=== PATIENT | male | born 1945 | race Caucasian/White ===

== ENCOUNTER 2017-11-05 09:04 | Observation (INO) | payer MEDICARE ==
[2017-11-05] MEDS ORDERED: SODIUM CHLORIDE 0.9% 1,000 ML IV STA (09:34)
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
[2017-11-05 09:47] LABS: Glucose,Whole Blood 158 mg/dL (75-99)
[2017-11-05 09:58] LABS: Basophils % (A) 1 %; Eosinophils # (A) 0.2 k/uL (0-0.7); Eosinophils % (A) 3 %; HCT 43.5 % (39.0-53.0); HGB 14.3 gm/dL (13.0-17.5); Lymphocytes % (A) 26 %; MCH 28.6 pg (25.0-35.0); MCHC 32.8 g/dL (31.0-37.0); MCV 87.3 fL (80.0-100.0); Monocytes # (A) 0.4 k/uL (0-1.0); Monocytes % (A) 5 %; Neutrophils # (A) 4.7 k/uL (1.3-7.7); Neutrophils % (A) 63 %; Platelet Count 190 k/uL (150-450); RBC 4.98 m/uL (4.30-5.90); RDW 14.7 % (11.5-15.5); WBC 7.4 k/uL (3.8-10.6)
[2017-11-05 10:08] LABS: ALT 40 U/L (21-72); AST 30 U/L (17-59); Alkaline Phosphatase 56 U/L (38-126); Anion Gap 14 mmol/L; Blood Urea Nitrogen 21 mg/dL (9-20); Carbon Dioxide 21 mmol/L (22-30); Chloride 108 mmol/L (98-107); Glucose 182 mg/dL (74-99); Potassium 4.6 mmol/L (3.5-5.1); Sodium 143 mmol/L (137-145); Total Bilirubin 0.6 mg/dL (0.2-1.3)
--- NOTE | 2017-11-05 10:21 | XR ---
EXAMINATION TYPE: XR chest 2V DATE OF EXAM: 11/05/2017 COMPARISON: NONE HISTORY: Syncope and weakness. TECHNIQUE: Frontal and lateral views of the chest are obtained. FINDINGS: Somewhat low lung volumes are noted. There is no focal air space opacity, pleural effusion , or pneumothorax seen. The cardiac silhouette size is within normal limits. Multilevel bridging spu rs in thoracic spine are present. IMPRESSION: Low lung volumes without suspicious acute pulmonary process.
[2017-11-05 10:23] LABS: Creatine Kinase 71 U/L (55-170)
[2017-11-05 10:26] LABS: INR 1.1 (<1.2); Prothrombin Time 10.4 sec (9.0-12.0)
--- NOTE | 2017-11-05 10:33 | CT ---
EXAMINATION TYPE: CT brain wo con DATE OF EXAM: 11/05/2017 HISTORY: Syncope, dizziness, behavioral changes CT DLP: 1090.4 mGycm. Automated Exposure Control for Dose Reduction was Utilized. TECHNIQUE: CT scan of the head is performed without contrast. COMPARISON: None. FINDINGS: There is no acute intracranial hemorrhage or midline shift identified. There is diffuse v entricular and sulcal prominence consistent with diffuse age-related cerebral atrophy. There is low- attenuation in the periventricular white matter consistent with chronic small vessel ischemic change. The globes are intact and the visualized sinuses are clear. Soft tissue density right external au ditory canal is felt to reflect cerumen. IMPRESSION: No acute intracranial hemorrhage or midline shift. There is mild to moderate diffuse ag e-related cerebral atrophy and chronic small vessel ischemic change noted.
[2017-11-05 10:36] LABS: Creatine Kinase MB 1.4 ng/mL (0.0-2.4); Troponin I <0.012 ng/mL (0.000-0.034)
[2017-11-05 10:42] LABS: Partial Thromboplastin Time 21.2 sec (22.0-30.0)
[2017-11-05] MEDS ORDERED: NALOXONE 0.4 MG/ML 1 ML VIAL IV PRN (11:18)
[2017-11-05] MEDS ORDERED: ONDANSETRON 4 MG/2 ML VIAL IVP PRN (11:18)
[2017-11-05] MEDS: PANTOPRAZOLE 40 MG/10 ML VIAL IV SCH (12:17)
--- NOTE | 2017-11-05 15:58 | US ---
EXAMINATION TYPE: US carotid duplex BILAT DATE OF EXAM: 11/05/2017 COMPARISON: NONE CLINICAL HISTORY: near syncope. Grayscale, color Doppler, spectral Doppler imaging performed of the carotid arteries. No elevated velocities evident within the proximal internal carotid arteries bilaterally. Vertebral a rteries show antegrade flow. Mild atheromatous changes are present at the carotid bulb levels. IMPRESSION: No hemodynamic significant stenosis of the proximal internal carotid arteries bilaterall y by Doppler criteria, an indirect measurement of carotid stenosis Criteria for Assigning % of Stenosis / Diameter reduction (Estimation based on the indirect measurements of the internal carotid artery velocities (ICA PSV). 1. Normal (no stenosis)=ICA PSV < 125 cm/s: ratio < 2.0: ICA EDV<40 cm/s. 2. Less than 50% stenosis=ICA PSV < 125 cm/s: ratio < 2.0: ICA EDV<40 cm/s. 3. 50 to 69% stenosis=ICA PSV of 125 to 230 cm/s: ration 2.0 ? 4.0: ICA EDV 40-100 cm/s. 4. Greater than 70% stenosis to near occlusion= ICA PSV > 230 cm/s: ratio > 4.0: ICA EDV > 100 cm/s. 5. Near occlusion= ICA PSV velocities may be low or undetectable: variable ratio and ICA EDV. 6. Total occlusion=unable to detect flow.
[2017-11-05 16:04] LABS: Creatine Kinase 94 U/L (55-170)
[2017-11-05 16:15] LABS: Creatine Kinase MB 1.7 ng/mL (0.0-2.4); Troponin I <0.012 ng/mL (0.000-0.034)
[2017-11-05 17:25] LABS: Glucose,Whole Blood 99 mg/dL (75-99)
--- NOTE | 2017-11-05 17:26 | ECHOF ---
Referral Reason:near syncope MEASUREMENTS -------- HEIGHT: 180.3 cm WEIGHT: 97.5 kg BP: 123/62 IVSd: 1.2 cm (0.6 - 1.1) LVIDd: 4.4 cm (3.9 - 5.3) LVPWd: 1.1 cm (0.6 - 1.1) IVSs: 2.4 cm LVIDs: 2.1 cm LVPWs: 1.7 cm LAESV Index (A-L): 30.11 ml/m Ao Diam: 3.7 cm (2.0 - 3.7) AV Cusp: 1.8 cm (1.5 - 2.6) LA Diam: 3.4 cm (2.7 - 3.8) MV EXCURSION: 26.725 mm (> 18.000) MV EF SLOPE: 169 mm/s (70 - 150) EPSS: 0.3 cm MV E Lorenzo: 0.89 m/s MV DecT: 237 ms MV A Lorenzo: 0.73 m/s MV E/A Ratio: 1.23 RAP: 5.00 mmHg RVSP: 9.79 mmHg FINDINGS -------- Sinus rhythm. This was a technically good study. The left ventricular size is normal. There is mild concentric left ventricular hypertrophy. Overa ll left ventricular systolic function is normal with, an EF between 60 - 65 %. The right ventricle is normal in size and function. The left atrium is normal in size. The right atrium is normal in size. The aortic valve is trileaflet, and appears structurally normal. No aortic stenosis or regurgitation. The mitral valve leaflets are mildly thickened. There is trace mitral regurgitation. Trace tricuspid regurgitation present. The right ventricular systolic pressure, as measured by Dopp ler, is 9.79mmHg. Pulmonic valve appears structurally normal. The aortic root size is normal. The pericardium is normal. CONCLUSIONS -------- 1. Sinus rhythm. 2. This was a technically good study. 3. The left ventricular size is normal. 4. There is mild concentric left ventricular hypertrophy. 5. Overall left ventricular systolic function is normal with, an EF between 60 - 65 %. 6. The right ventricle is normal in size and function. 7. The left atrium is normal in size. 8. The right atrium is normal in size. 9. The aortic valve is trileaflet, and appears structurally normal. No aortic stenosis or regurgitati on. 10. The mitral valve leaflets are mildly thickened. 11. There is trace mitral regurgitation. 12. Trace tricuspid regurgitation present. 13. The right ventricular systolic pressure, as measured by Doppler, is 9.79mmHg. 14. Pulmonic valve appears structurally normal. 15. The aortic root size is normal. 16. The pericardium is normal. HOT DIP PLATING SUPERVISOR: Nubia Gudino RDCS
[2017-11-05 19:38] VITALS: RESP 18
[2017-11-05] MEDS: SODIUM CHLORIDE 0.9% 1,000 ML IV SCH (19:43)
[2017-11-05] MEDS: metFORMIN 500 MG TAB PO SCH (20:19)
[2017-11-05] MEDS: INSULIN ASPART 100 UNIT/ML 1 ML 10 ML VIAL SQ SCH (20:21)
[2017-11-05 20:22] LABS: Glucose,Whole Blood 139 mg/dL (75-99)
[2017-11-05 20:40] LABS: Appearance,Urine Clear (Clear); Bilirubin,Urine Negative (Negative); Blood,Urine Negative (Negative); Color,Urine Yellow; Glucose,Urine (UA) 2+ (Negative); Ketones,Urine Negative (Negative); Leukocyte Esterase,Urine Negative (Negative); Nitrite,Urine Negative (Negative); Protein,Urine Negative (Negative); Specific Gravity,Urine 1.019 (1.001-1.035); Urobilinogen,Urine <2.0 mg/dL (<2.0)
[2017-11-05] MEDS ORDERED: ATORVASTATIN 20 MG TAB PO SCH (21:00)
[2017-11-05] MEDS ORDERED: GLIMEPIRIDE 4 MG TAB PO SCH (21:00)
[2017-11-05] MEDS ORDERED: FINASTERIDE 5 MG TAB PO SCH (21:00)
[2017-11-05] MEDS ORDERED: LISINOPRIL 10 MG TAB PO SCH (21:00)
[2017-11-05 21:28] LABS: Creatine Kinase 162 U/L (55-170)
[2017-11-05 21:40] LABS: Creatine Kinase MB 2.3 ng/mL (0.0-2.4); Troponin I <0.012 ng/mL (0.000-0.034)
[2017-11-05] MEDS: HEPARIN SODIUM,PORCINE 5,000 UNIT/ML 1 ML VIAL SQ SCH (21:49)
[2017-11-05] MEDS ORDERED: MELATONIN 5 MG TABLET PO PRN (22:46)
--- NOTE | 2017-11-05 23:17 | HP ---
HISTORY AND PHYSICAL DATE OF SERVICE: 11/05/2017 CHIEF COMPLAINT: Syncope. HISTORY OF PRESENT ILLNESS: This 72-year-old gentleman with a past medical history of multiple medical problems, including history of diabetes, hypertension, hyperlipidemia, history of prostate disorder being followed by Dr. Will in the outpatient setting was apparently eating breakfast. Subsequently patient was going to the bathroom. On the way to the bathroom, the patient passed out and the patient is not feeling well. The patient had episodes of nausea and several episodes of vomiting also. Patient taken to [facility] admitted for further evaluation and treatment. There is no history of fever, rigors. No headache, seizures. PAST MEDICAL HISTORY: History of diabetes, hypertension, hyperlipidemia, prostate disorder. MEDICATIONS PRIOR TO ADMISSION: Include: 1. Glucophage 1000 mg p.o. b.i.d. 2. Zocor 40 mg q.h.s. 3. Zestril 10 mg q.h.s. 4. Amaryl 4 mg q.h.s. 5. Proscar 5 mg q.h.s. 6. Zetia 10 mg p.o. daily. ALLERGIES: None. FAMILY HISTORY: History of stomach cancer in the family. SOCIAL HISTORY: No history of smoking. Occasional alcohol intake. REVIEW OF SYSTEMS: ENT: No diminished hearing, diminished vision. CARDIOVASCULAR: As mentioned earlier. RESPIRATORY: As mentioned earlier. GI: No nausea. : No dysuria. NERVOUS: As mentioned earlier. ALLERGY/IMMUNOLOGY: No asthma or hay fever. MUSCULOSKELETAL: As mentioned earlier. HEMATOLOGY/ONCOLOGY: No history of anemia. ENDOCRINE: No history of diabetes, hypothyroidism. CONSTITUTIONAL: As mentioned earlier. DERMATOLOGY: Negative. RHEUMATOLOGY: Negative. PSYCHIATRY: As mentioned earlier. PHYSICAL EXAMINATION: Alert and oriented x3. Pulse 63, blood pressure 123/57, respirations 18, temperature 97.9, pulse ox 96% on room air. HEENT: Conjunctivae normal. NECK: No jugular venous distention. CARDIOVASCULAR: S1, S2 muffled. RESPIRATORY: Breath sounds diminished in the bases. No rhonchi. No crackles. ABDOMEN: Soft, nontender. No mass palpable. LEGS: No edema. No swelling. NERVOUS SYSTEM: Higher functions as mentioned earlier. Moves all 4 limbs. No focal motor or sensory deficits. LYMPHATIC: No lymphadenopathy in neck or axillae. SKIN: No ulcer, rash or bleeding. LABS: CBC within normal limits. Otherwise, PT/PTT 20/1.2. CO2 is 21, BUN is 21, glucose 118. ASSESSMENT: 1. Syncope for evaluation, possibly vasovagal, rule out cardiac arrhythmia or orthostatic hypotension. 2. History of hypertension. 3. Hyperlipidemia. 4. Diabetes mellitus type 2. 5. History of prostate disorder. 6. History of degenerative joint disease, joint replacements. RECOMMENDATIONS AND DISCUSSION: In this 72-year-old gentleman who presented with multiple complex medical issues, we will monitor the patient closely, continue the current medical management, continue symptomatic treatment. Otherwise, I would recommend a D-dimer and cardiology, neurology evaluation. Neuro checks, neurovascular workup, IV fluids. Monitor blood sugars closely. Telemetry monitoring. Prognosis guarded because of multiple complex medical issues. Further recommendations to follow. Discussed with the patient, who understands and agrees. A copy of this dictation will be forwarded to Dr. Will, who is the primary physician. YON / ALESSANDRAN: [id number] /
[2017-11-06 04:33] LABS: Hemoglobin A1C 7.5 % (4.0-6.0)
[2017-11-06 06:55] LABS: Glucose,Whole Blood 115 mg/dL (75-99)
[2017-11-06 07:35] LABS: Basophils % (A) 1 %; Eosinophils # (A) 0.2 k/uL (0-0.7); Eosinophils % (A) 2 %; HCT 40.2 % (39.0-53.0); HGB 13.5 gm/dL (13.0-17.5); Lymphocytes # (A) 1.6 k/uL (1.0-4.8); Lymphocytes % (A) 21 %; MCH 29.2 pg (25.0-35.0); MCHC 33.6 g/dL (31.0-37.0); Mean Platelet Volume 8.8; Monocytes # (A) 0.4 k/uL (0-1.0); Monocytes % (A) 5 %; Neutrophils # (A) 5.5 k/uL (1.3-7.7); Neutrophils % (A) 70 %; Platelet Count 167 k/uL (150-450); RBC 4.63 m/uL (4.30-5.90); RDW 14.9 % (11.5-15.5); WBC 7.8 k/uL (3.8-10.6)
[2017-11-06 07:53] LABS: ALT 36 U/L (21-72); AST 26 U/L (17-59); Albumin 3.7 g/dL (3.5-5.0); Alkaline Phosphatase 53 U/L (38-126); Anion Gap 11 mmol/L; Blood Urea Nitrogen 21 mg/dL (9-20); Calcium 9.7 mg/dL (8.4-10.2); Carbon Dioxide 25 mmol/L (22-30); Chloride 107 mmol/L (98-107); Glucose 113 mg/dL (74-99); Potassium 4.5 mmol/L (3.5-5.1); Sodium 143 mmol/L (137-145); Total Bilirubin 0.4 mg/dL (0.2-1.3); Total Protein 6.5 g/dL (6.3-8.2)
[2017-11-06] MEDS ORDERED: EZETIMIBE 10 MG TAB PO SCH (09:00)
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
[2017-11-06] MEDS: INSULIN ASPART 100 UNIT/ML 1 ML 10 ML VIAL SQ SCH ×2 (10:49→12:53)
[2017-11-06] MEDS: metFORMIN 500 MG TAB PO SCH (10:53)
[2017-11-06] MEDS: PANTOPRAZOLE 40 MG/10 ML VIAL IV SCH (10:54)
[2017-11-06] MEDS: HEPARIN SODIUM,PORCINE 5,000 UNIT/ML 1 ML VIAL SQ SCH (10:55)
[2017-11-06 11:36] VITALS: BP 113/59; PULSE 62; TEMP 98.1
[2017-11-06 12:01] LABS: Glucose,Whole Blood 209 mg/dL (75-99)
[2017-11-06] MEDS: SODIUM CHLORIDE 0.9% 1,000 ML IV SCH (12:43)
--- NOTE | 2017-11-07 08:40 | DS ---
DISCHARGE SUMMARY FINAL DIAGNOSES: 1. Syncope for evaluation, possible vasovagal, improved. 2. History of hypertension. 3. Hyperlipidemia. 4. Diabetes mellitus type 2. 5. History of prostate disorder. 6. History of degenerative joint disease, joint replacement. DISCHARGE DISPOSITION: The patient will be discharged in a stable condition with guarded prognosis. HISTORY OF PRESENT ILLNESS: This 72-year-old gentleman with past medical history of multiple medical problems admitted with features of dizziness and near syncope. The patient was monitored closely, thought to have vasovagal syncope and Cardiology saw the patient and recommended outpatient followup for possible monitoring. Otherwise the patient improved significantly. On exam, vitals are stable. CARDIOVASCULAR: S1 and S2 muffled. ABDOMEN: Soft. NERVOUS SYSTEM: No focal deficits. DISCHARGE ADVICE: 1. Diet is cardiac. 2. Activity limited until followup. 3. Follow up with Dr. Will in 2 to 3 days. 4. Follow up with Dr. Delgadillo as advised. 5. Follow up with Dr. Julian as advised. Medications are: 1. Zetia 10 mg p.o. daily. 2. Proscar 5 mg q.h.s. 3. Amaryl 4 mg q.h.s. 4. Zestril 10 mg q.h.s. 5. Glucophage 1000 mg p.o. b.i.d. 6. Zocor 40 mg q.h.s. MMAIXA / ALESSANDRAN: [id number] /
[2017-11-07] MEDS ORDERED: PANTOPRAZOLE 40 MG TABLET PO SCH (09:00)
== END 2017-11-06 14:05 | disposition home or self-care (01) ==
LOC: EC 09:04 → 3OBS 11:18
PROVIDERS: ADMIT Internal Medicine; ATTEND Internal Medicine
DX: R55 Syncope and collapse (principal); E11.9 Type 2 diabetes mellitus without complications; E78.5 Hyperlipidemia, unspecified; I10 Essential (primary) hypertension; R11.2 Nausea with vomiting, unspecified; R26.2 Difficulty in walking, not elsewhere classified; N42.9 Disorder of prostate, unspecified; M19.90 Unspecified osteoarthritis, unspecified site; M54.31 Sciatica, right side; Z79.899 Other long term (current) drug therapy; Z79.84 Long term (current) use of oral hypoglycemic drugs; Z80.0 Family history of malignant neoplasm of digestive organs; Z86.010 Personal history of colon polyps; Z82.0 Family history of epilepsy and other diseases of the nervous system
CPT/HCPCS: 96361 ×3; 96372 ×2; 96374; 99285; 36415; 94760; 93306; 85379; 80053 ×2; 84443; 82550; 82553; 84484; 85025 ×2; 85610; 85730; 81003; 83036; 71046; 93880; 70450; G0378 ×2; S0138; J1644 ×2; C9113; 93005

== ENCOUNTER 2018-09-30 07:26 | Inpatient (IN) | payer MEDICARE ==
[2018-09-30] MEDS ORDERED: SODIUM CHLORIDE 0.9% 500 ML 500 ML IV STA (07:47)
[2018-09-30] MEDS ORDERED: SODIUM CHLORIDE 0.9% 1,000 ML IV STA ×2 (07:47→09:31)
[2018-09-30 08:16] LABS: Basophils % (A) 0 %; Eosinophils # (A) 0.1 k/uL (0-0.7); Eosinophils % (A) 1 %; HCT 45.5 % (39.0-53.0); HGB 14.7 gm/dL (13.0-17.5); Lymphocytes # (A) 1.1 k/uL (1.0-4.8); Lymphocytes % (A) 15 %; MCH 27.1 pg (25.0-35.0); MCHC 32.2 g/dL (31.0-37.0); MCV 84.2 fL (80.0-100.0); Mean Platelet Volume 9.1; Monocytes # (A) 0.4 k/uL (0-1.0); Monocytes % (A) 6 %; Neutrophils # (A) 5.5 k/uL (1.3-7.7); Neutrophils % (A) 77 %; Platelet Count 297 k/uL (150-450); RBC 5.41 m/uL (4.30-5.90); RDW 13.3 % (11.5-15.5); WBC 7.2 k/uL (3.8-10.6)
[2018-09-30 08:24] LABS: Partial Thromboplastin Time 24.8 sec (22.0-30.0)
[2018-09-30 08:30] LABS: Albumin 4.4 g/dL (3.5-5.0); Total Bilirubin 0.6 mg/dL (0.2-1.3); Total Protein 8.1 g/dL (6.3-8.2)
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
[2018-09-30 08:39] LABS: Creatine Kinase 70 U/L (55-170)
[2018-09-30 08:43] LABS: Magnesium 1.7 mg/dL (1.6-2.3); Phosphorus 4.1 mg/dL (2.5-4.5)
[2018-09-30] MEDS ORDERED: DEXTROSE 50%-WATER 50 ML SYRINGE IVP STA (08:49)
[2018-09-30 08:51] LABS: Creatine Kinase MB 1.9 ng/mL (0.0-2.4); Troponin I <0.012 ng/mL (0.000-0.034)
[2018-09-30 08:52] LABS: Glucose,Whole Blood 31 mg/dL (75-99)
[2018-09-30 09:14] LABS: Glucose,Whole Blood 126 mg/dL (75-99)
[2018-09-30] MEDS ORDERED: DEXTROSE 5%-0.45% NACL 1,000 ML IV ONE (10:38)
[2018-09-30 10:51] LABS: Glucose,Whole Blood 71 mg/dL (75-99)
[2018-09-30 12:02] LABS: Appearance,Urine Cloudy (Clear); Bilirubin,Urine Negative (Negative); Blood,Urine Negative (Negative); Color,Urine Yellow; Glucose,Urine (UA) 3+ (Negative); Ketones,Urine Negative (Negative); Leukocyte Esterase,Urine Negative (Negative); Mucus,Urine Rare /hpf; Nitrite,Urine Negative (Negative); Protein,Urine Negative (Negative); RBC,Urine <1 /hpf (0-5); Specific Gravity,Urine 1.016 (1.001-1.035); Squamous Epithelial Cell,Urine 1 /hpf (0-4); Uric Acid Crystals,Urine Rare /hpf; Urobilinogen,Urine <2.0 mg/dL (<2.0); WBC,Urine 1 /hpf (0-5)
[2018-09-30 12:15] LABS: Glucose,Whole Blood 74 mg/dL (75-99)
[2018-09-30 13:05] LABS: Glucose,Whole Blood 89 mg/dL (75-99)
[2018-09-30] MEDS: ASPIRIN 81 MG PO SCH (14:31)
[2018-09-30] MEDS ORDERED: metFORMIN 500 MG TAB PO SCH (17:30)
[2018-09-30 17:36] LABS: Glucose,Whole Blood 35 mg/dL (75-99)
[2018-09-30 17:45] LABS: Glucose,Whole Blood 60 mg/dL (75-99)
[2018-09-30 18:29] LABS: Glucose,Whole Blood 51 mg/dL (75-99)
[2018-09-30 18:29] LABS: Glucose,Whole Blood 80 mg/dL (75-99)
[2018-09-30] MEDS: ATORVASTATIN 20 MG TAB PO SCH (20:20)
[2018-09-30] MEDS: SERTRALINE 25 MG TAB PO SCH (20:21)
[2018-09-30] MEDS: FENOFIBRATE 160 MG TAB PO SCH (20:21)
[2018-09-30] MEDS: DONEPEZIL 10 MG TAB PO SCH (20:21)
[2018-09-30 20:54] LABS: Glucose,Whole Blood 64 mg/dL (75-99)
[2018-09-30] MEDS ORDERED: GLIMEPIRIDE 4 MG TAB PO SCH (21:00)
[2018-09-30] MEDS ORDERED: LISINOPRIL 10 MG TAB PO SCH (21:00)
[2018-09-30 21:26] LABS: Glucose,Whole Blood 93 mg/dL (75-99)
[2018-09-30] MEDS ORDERED: SODIUM POLYSTYRENE SULFONATE 15 GM/60 ML BOTTLE PO STA (21:52)
[2018-09-30] MEDS: DEXTROSE 10% IN WATER 500 ML in EMPTY BAG 1 BAG IV SCH (22:17)
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
[2018-09-30 23:10] LABS: Calcium 9.5 mg/dL (8.4-10.2); Potassium 5.3 mmol/L (3.5-5.1)
[2018-10-01 01:46] LABS: Glucose,Whole Blood 95 mg/dL (75-99)
[2018-10-01 05:26] LABS: Glucose,Whole Blood 99 mg/dL (75-99)
[2018-10-01] MEDS: DEXTROSE 10% IN WATER 500 ML in EMPTY BAG 1 BAG IV SCH ×2 (05:43→18:35)
[2018-10-01 06:52] LABS: Glucose,Whole Blood 105 mg/dL (75-99)
[2018-10-01] MEDS: ENOXAPARIN 40 MG/0.4 ML SYRINGE SQ SCH (08:17)
[2018-10-01] MEDS: ASPIRIN 81 MG PO SCH (08:17)
[2018-10-01 08:21] LABS: Calcium 9.7 mg/dL (8.4-10.2); Potassium 5.6 mmol/L (3.5-5.1)
[2018-10-01 11:29] LABS: Glucose,Whole Blood 169 mg/dL (75-99)
[2018-10-01 15:02] VITALS: BMI 26.4
[2018-10-01 16:10] LABS: Glucose,Whole Blood 187 mg/dL (75-99)
[2018-10-01] MEDS: DEXTROSE 5%-0.45% NACL 1,000 ML IV SCH (18:36)
[2018-10-01 19:50] LABS: Hemoglobin A1C 6.8 % (4.0-6.0)
[2018-10-01 20:16] LABS: Glucose,Whole Blood 147 mg/dL (75-99)
[2018-10-01] MEDS: ATORVASTATIN 20 MG TAB PO SCH (21:23)
[2018-10-01] MEDS: DONEPEZIL 10 MG TAB PO SCH (21:23)
[2018-10-01] MEDS: SERTRALINE 25 MG TAB PO SCH (21:23)
[2018-10-01] MEDS: FENOFIBRATE 160 MG TAB PO SCH (21:23)
[2018-10-01] MEDS: LORazepam 1 MG TAB PO PRN (21:23)
[2018-10-02] MEDS ORDERED: SODIUM POLYSTYRENE SULFONATE 15 GM/60 ML BOTTLE PO STA (00:01)
--- NOTE | 2018-10-02 00:37 | PN ---
PROGRESS NOTE DATE OF SERVICE: 10/01/2018 PRESENTING COMPLAINT: Hypoglycemia. INTERVAL HISTORY: This patient presented with increasing confusion from hypoglycemia. Did put him on hypoglycemia protocol. Sugars are doing better. at the bedside. The patient is tolerating a diet. The patient has been on a D10 drip. I did change it to D5 0.45. Early this morning. REVIEW OF SYSTEMS: Done for constitutional, cardiovascular, GI, pulmonary; relevant findings as above. CURRENT MEDICATIONS: Reviewed. Patient is off the oral hypoglycemic, he is on D5 0.45. EXAMINATION: VITAL SIGNS: Temp 97.7, pulse 73, respiration 16, blood pressure 120/65, pulse ox 96 percent on room air. GENERAL APPEARANCE: Sitting up, awake. EYES : Pupils equal. Conjunctivae normal. NECK: JVD not raised. Mass not palpable. RESPIRATORY: Effort normal. LUNGS are clear. CARDIOVASCULAR: 1st and 2nd sounds normal. No edema. ABDOMEN: Soft, nontender. Liver and spleen not palpable. PSYCHIATRY: Baseline confused, answering simple questions. INVESTIGATIONS: Potassium was 5.6, BUN 26, creatinine 1.36. Accu-Cheks 105, 169 and 187. ASSESSMENT: 1. Severe persistent hypoglycemia secondary to oral hypoglycemics form of Amaryl. Patient is still requiring D5 0.45. 2. Chronic kidney disease stage 3 probably from diabetic nephropathy. The patient's creatinine was 1.23 back in October of this year. 3. Hyperkalemia in a setting of renal failure. The patient's PRAMOD inhibitor was discontinued. 4. Essential hypertension. 5. Diabetes mellitus type 2 on oral hypoglycemic. 6. Primary osteoarthritis. 7. Moderate cognitive impairment from Alzheimer's dementia. 8. Acute delirium from hypoglycemia. 9. Benign prostatic hypertrophy. PLAN: Care was discussed with the at the bedside. Will give another dose of Kayexalate. Repeat labs in the morning. MMODL / IJN: [id number] /
[2018-10-02 02:34] LABS: Glucose,Whole Blood 167 mg/dL (75-99)
[2018-10-02 07:28] LABS: Glucose,Whole Blood 156 mg/dL (75-99)
[2018-10-02] MEDS: ENOXAPARIN 40 MG/0.4 ML SYRINGE SQ SCH (07:29)
[2018-10-02] MEDS: ASPIRIN 81 MG PO SCH (07:29)
[2018-10-02 08:08] LABS: Calcium 9.7 mg/dL (8.4-10.2); Potassium 5.2 mmol/L (3.5-5.1)
[2018-10-02 12:22] LABS: Glucose,Whole Blood 186 mg/dL (75-99)
[2018-10-02] MEDS: DEXTROSE 5%-0.45% NACL 1,000 ML IV SCH (13:55)
[2018-10-02 17:09] LABS: Glucose,Whole Blood 149 mg/dL (75-99)
[2018-10-02 20:06] LABS: Glucose,Whole Blood 184 mg/dL (75-99)
[2018-10-02] MEDS: DONEPEZIL 10 MG TAB PO SCH (20:13)
[2018-10-02] MEDS: ATORVASTATIN 20 MG TAB PO SCH (20:13)
[2018-10-02] MEDS: LORazepam 1 MG TAB PO PRN (20:13)
[2018-10-02] MEDS: SERTRALINE 25 MG TAB PO SCH (20:13)
[2018-10-02] MEDS: FENOFIBRATE 160 MG TAB PO SCH (20:13)
[2018-10-03 02:43] LABS: Glucose,Whole Blood 143 mg/dL (75-99)
[2018-10-03 06:28] VITALS: TEMP 97.5
[2018-10-03 07:24] LABS: Glucose,Whole Blood 143 mg/dL (75-99)
[2018-10-03 07:51] LABS: Calcium 9.8 mg/dL (8.4-10.2); Potassium 5.5 mmol/L (3.5-5.1)
[2018-10-03] MEDS: ASPIRIN 81 MG PO SCH (07:54)
[2018-10-03] MEDS: ENOXAPARIN 40 MG/0.4 ML SYRINGE SQ SCH (07:55)
--- NOTE | 2018-10-03 08:30 | PN ---
PROGRESS NOTE DATE OF SERVICE: October 02, 2018. PRESENTING COMPLAINT: Hypoglycemia. INTERVAL HISTORY: Patient presented with acute metabolic encephalopathy from hypoglycemia. The patient was switched to D5 0.45, drip yesterday. Doing better, lying in bed. REVIEW OF SYSTEMS: Done for constitutional, cardiovascular, GI, pulmonary and relevant findings as above. CURRENT MEDICATIONS: Reviewed that include D5 0.45. PHYSICAL EXAMINATION: VITAL SIGNS: Temperature 97.8, pulse respiratory rate 18, blood pressure 109/57, pulse ox 95% on room air. GENERAL APPEARANCE: Lying in bed, awake. EYES: Pupils are equal. Conjunctivae normal. NECK: JVD not raised. Mass not palpable. RESPIRATORY: Effort normal. LUNGS: Clear. CARDIOVASCULAR: 1st and 2nd sounds normal. No edema. ABDOMEN: Soft, nontender. Liver and spleen not palpable. PSYCHIATRY: Patient is answering simple questions. INVESTIGATIONS: Accu-Cheks 156, 186, 149. ASSESSMENT: 1. Severe persistent hypoglycemia secondary to oral hypoglycemic from Amaryl responding to D5 0.45. 2. Chronic kidney stage 3 from diabetic nephropathy. 3. Hypokalemia secondary to renal failure. PRAMOD inhibitor has been discontinued. 4. Essential hypertension. 5. Diabetes mellitus type 2 on oral hypoglycemic. 6. Primary osteoarthritis. 7. Moderate cognitive impairment from Alzheimer's dementia. 8. Acute delirium from hypoglycemia, present on admission. 9. Benign prostatic hypertrophy. PLAN: Will DC patient's D5 0.45 tonight. Keep a close eye on patient's sugars. If does well, hopefully can be discharged. Follow. MMODL / IJN: [id number] /
[2018-10-03 11:51] LABS: Glucose,Whole Blood 161 mg/dL (75-99)
[2018-10-03 14:42] VITALS: BP 150/70; PULSE 76; RESP 22
[2018-10-03] MEDS ORDERED: SODIUM POLYSTYRENE SULFONATE 15 GM/60 ML BOTTLE PO STA (14:58)
[2018-10-03 17:25] LABS: Glucose,Whole Blood 139 mg/dL (75-99)
--- NOTE | 2018-10-04 02:23 | DS ---
DISCHARGE SUMMARY DATE OF ADMISSION: September 30, 2018. DATE OF DISCHARGE: October 03, 2018. FINAL DIAGNOSES: 1. Severe persistent hypoglycemia, causing acute delirium, POA. 2. Chronic kidney disease stage 3 from diabetic nephropathy. 3. Hyperkalemia secondary to renal failure. PRAMOD inhibitor discontinued. 4. Essential hypertension. 5. Diabetes mellitus type 2 on oral hypoglycemic. 6. Primary osteoarthritis. 7. Moderate cognitive impairment from Alzheimer's dementia. 8. Benign prostatic hypertrophy. HOSPITAL COURSE: This patient presented with delirious, found to be hypoglycemic from his Amaryl that was discontinued. Did use hypoglycemia protocol. The patient's sugars finally got corrected. Amaryl has been discontinued. Also the patient has got chronic kidney disease. Because of hyperkalemia, PRAMOD inhibitor was discontinued. The patient did get some Kayexalate today. We will have him repeat. Did talk to the about getting a BMP check thru family doctor on Friday. Doing better. Otherwise, tolerating a diet. EXAMINATION: VITAL SIGNS: Temp 97.5, pulse 76, respiration 22, blood pressure 150/70. LUNGS: Clear. Cardiovascular: 1st and 2nd sounds normal. The patient has mild cognitive impairment. LABS: BUN 27, creatinine 1.48. Accu-Cheks 161, 139. DISCHARGE MEDICATIONS: 1. Zocor 40 mg q.h.s. 2. Aspirin 81 mg a day. 3. Aricept 10 mg q.h.s. 4. Tricor 160 mg q.h.s. 5. Zoloft 25 mg q.h.s. 6. Glucophage 1000 mg p.o. b.i.d. Discontinued medications: Lisinopril, Amaryl. FOLLOWUP: Follow up with Dr. Will in 3 days. Patient to do Accu-Cheks before snack and bedtime and keep a log for 3 days, take to Dr. Will. Discussion and discharge planning more than [address] Will. MMMARLINL / IJN: [id number] /
== END 2018-10-03 18:35 | disposition home or self-care (01) | DRG 638 ==
LOC: EC 07:26 → 4MS4W 10:38 → 3NMEDONC 13:04
PROVIDERS: ADMIT Hospitalist; ATTEND Hospitalist
DX: E11.649 Type 2 diabetes mellitus with hypoglycemia without coma (principal); F05 Delirium due to known physiological condition; N17.9 Acute kidney failure, unspecified; E87.5 Hyperkalemia; E86.0 Dehydration; E11.22 Type 2 diabetes mellitus with diabetic chronic kidney disease; N18.3 Chronic kidney disease, stage 3 (moderate); F02.80 Dementia in other diseases classified elsewhere, unspecified severity, without behavioral disturbance, psychotic disturbance, mood disturbance, and anxiety; G30.9 Alzheimer's disease, unspecified; T38.3X5A Adverse effect of insulin and oral hypoglycemic [antidiabetic] drugs, initial encounter; E78.5 Hyperlipidemia, unspecified; I12.9 Hypertensive chronic kidney disease with stage 1 through stage 4 chronic kidney disease, or unspecified chronic kidney disease; M19.91 Primary osteoarthritis, unspecified site; N40.0 Benign prostatic hyperplasia without lower urinary tract symptoms; M54.31 Sciatica, right side; Z96.642 Presence of left artificial hip joint; Z79.82 Long term (current) use of aspirin; Z79.84 Long term (current) use of oral hypoglycemic drugs; Z79.899 Other long term (current) drug therapy; Z86.010 Personal history of colon polyps; Z80.0 Family history of malignant neoplasm of digestive organs; Z82.0 Family history of epilepsy and other diseases of the nervous system
CPT/HCPCS: 36415; 80048; 80053; 81001; 82550; 82553; 83036; 83605; 83735; 84100; 84484; 85025; 85610; 85730; 87086; 93005; 94760

== ENCOUNTER → 2018-10-05 | Outpatient (CLI) | payer MEDICARE ==
[2018-10-05 15:38] LABS: Anion Gap 8.5 mmol/L (4.00-12.00); Carbon Dioxide 29.5 mmol/L (21.6-31.8); Potassium 4.4 mmol/L (3.5-5.5)
== END | disposition home or self-care (01) ==
LOC: LABWHC1 09:12
PROVIDERS: ATTEND Hospitalist
DX: E87.5 Hyperkalemia (principal); E11.649 Type 2 diabetes mellitus with hypoglycemia without coma
CPT/HCPCS: 36415; 80048

== ENCOUNTER 2019-10-11 13:26 | Inpatient (IN) | payer MEDICARE ==
[2019-10-11] MEDS ORDERED: SODIUM CHLORIDE 0.9% 1,000 ML IV STA (14:11)
[2019-10-11 14:27] LABS: Basophils # (A) 0.1 k/uL (0-0.2); Basophils % (A) 1 %; Eosinophils # (A) 0.3 k/uL (0-0.7); Eosinophils % (A) 3 %; HCT 41.4 % (39.0-53.0); HGB 13.3 gm/dL (13.0-17.5); Lymphocytes # (A) 1.3 k/uL (1.0-4.8); Lymphocytes % (A) 13 %; MCHC 32.1 g/dL (31.0-37.0); Mean Platelet Volume 9.8; Monocytes # (A) 0.4 k/uL (0-1.0); Monocytes % (A) 4 %; Neutrophils # (A) 7.9 k/uL (1.3-7.7); Neutrophils % (A) 79 %; Platelet Count 213 k/uL (150-450); RBC 4.76 m/uL (4.30-5.90); RDW 13.5 % (11.5-15.5)
[2019-10-11 14:38] LABS: Albumin 4.2 g/dL (3.5-5.0); Calcium 9.5 mg/dL (8.4-10.2); Magnesium 1.9 mg/dL (1.6-2.3); Total Bilirubin 0.6 mg/dL (0.2-1.3); Total Protein 7.2 g/dL (6.3-8.2)
--- NOTE | 2019-10-11 14:40 | XR ---
EXAMINATION TYPE: XR chest 1V portable DATE OF EXAM: 10/11/2019 COMPARISON: 11/05/2017 HISTORY: Syncope TECHNIQUE: Single frontal view of the chest is obtained. FINDINGS: There is no pleural effusion or pneumothorax seen. The cardiac silhouette size is within normal limits. The osseous structures are intact. No overt failure. Limited inspiration. Arthropath y of the shoulders. By basilar subsegmental consolidation. IMPRESSION: Bibasilar subsegmental consolidation. Correlate for atelectasis versus pneumonia.
[2019-10-11 14:41] LABS: Potassium 5.1 mmol/L (3.5-5.1)
[2019-10-11 14:53] LABS: Prothrombin Time 10.8 sec (9.0-12.0)
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
[2019-10-11 14:58] LABS: Partial Thromboplastin Time 21.3 sec (22.0-30.0)
[2019-10-11 15:31] LABS: Glucose,Whole Blood 235 mg/dL (75-99)
[2019-10-11 15:59] LABS: Appearance,Urine Clear (Clear); Bilirubin,Urine Negative (Negative); Blood,Urine Negative (Negative); Color,Urine Yellow; Glucose,Urine (UA) 2+ (Negative); Hyaline Casts,Urine 6 /lpf (0-2); Ketones,Urine Negative (Negative); Leukocyte Esterase,Urine Negative (Negative); Mucus,Urine Rare /hpf; Nitrite,Urine Negative (Negative); PH, Urine 5.5 (5.0-8.0); Protein,Urine 1+ (Negative); RBC,Urine 1 /hpf (0-5); Specific Gravity,Urine 1.021 (1.001-1.035); Squamous Epithelial Cell,Urine <1 /hpf (0-4); Urobilinogen,Urine <2.0 mg/dL (<2.0); WBC,Urine 3 /hpf (0-5)
[2019-10-11 16:07] LABS: VBG PH 7.39 (7.31-7.41)
[2019-10-11] MEDS ORDERED: ONDANSETRON 4 MG/2 ML VIAL IVP PRN (16:07)
[2019-10-11] MEDS ORDERED: NALOXONE 0.4 MG/ML 1 ML VIAL IV PRN (16:07)
[2019-10-11] MEDS ORDERED: MORPHINE SULFATE 4 MG/ML SYRINGE IV PRN (16:07)
[2019-10-11] MEDS ORDERED: ACETAMINOPHEN TAB 325 MG TAB PO PRN (16:07)
--- NOTE | 2019-10-11 17:06 | US ---
EXAMINATION TYPE: US gallbladder DATE OF EXAM: 10/11/2019 COMPARISON: NONE CLINICAL HISTORY: pancreatitis. EXAM MEASUREMENTS: Liver Length: 16.8 cm Gallbladder Wall: 0.3 cm CBD: not visualized Right Kidney: 11.8 x 5.3 x 4.7 cm Patient has large abdomen with severe overlying bowel gas, technically difficult and limited study. Pancreas: Obscured by bowel gas Liver: left lobe obscured by bowel gas, limited visualization Gallbladder: very limited visualization, no obvious abnormalities Evidence for sonographic Lopez's sign: no Right Kidney: cyst measuring 3.2 x 2.4 x 2.9cm IMPRESSION: No gallstones or dilated ducts. Exophytic right renal cortical cyst. No free fluid.
[2019-10-11] MEDS: SODIUM CHLORIDE 0.9% 1,000 ML IV SCH (17:57)
[2019-10-11] MEDS: LORazepam 2 MG/ML INJ IV PRN (18:31)
[2019-10-11] MEDS ORDERED: IOPAMIDOL CONTRAST (ORAL USE) VIAL PO PRN (18:38)
[2019-10-11] MEDS ORDERED: HYDROcodone/APAP 5-325MG 1 EACH TAB PO PRN (18:38)
[2019-10-11] MEDS: MEROPENEM 2 GM in SODIUM CHLORIDE 0.9% 100 ML IVPB SCH (21:25)
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
[2019-10-11] MEDS: DONEPEZIL 10 MG TAB PO SCH (22:20)
[2019-10-11] MEDS: HEPARIN SODIUM,PORCINE 5,000 UNIT/ML 1 ML VIAL SQ SCH (22:20)
[2019-10-11] MEDS: SERTRALINE 25 MG TAB PO SCH (22:20)
--- NOTE | 2019-10-11 22:35 | CT ---
EXAMINATION TYPE: CT abdomen pelvis wo con DATE OF EXAM: 10/11/2019 COMPARISON: None HISTORY: pancreatitis CT DLP: 942 mGycm Automated exposure control for dose reduction was used. There is some mild atelectasis at the right lung base. There is no pleural effusion. Heart size is no rmal. There is no pericardial effusion. Liver shows no focal defect. Spleen is intact. Stomach is int act. Gallbladder appears normal. Bile ducts are not dilated. There is no evidence of pancreatic mass. There is no adrenal mass. There is 3 mm calculus posterior left kidney. There is no hydronephrosis. T here is 3 cm cortical cyst lateral right kidney. There is no retroperitoneal adenopathy. Ureters are not dilated. There are dense calcifications at the floor of the posterior urinary bladder that could be large calculi. There is no inguinal hernia. There is no free fluid in the pelvis. There is no sign of a bowel obstruction. There is no mesenteric edema. There is no ascites or free air. The appendix appears normal. There is multilevel spondylotic changes in the lumbar spine. There is a first-degree L5-S1 spondylolisthesis w ith L5 spondylolysis. The bony pelvis is intact. There is left hip prosthesis. There is osteoarthriti c narrowing of right hip joint space. IMPRESSION: No evidence of pancreatitis. Minimal atelectasis right lung base. Nonobstructing left renal calculus. Mild sigmoid diverticulosis. Large bladder calculi. These measure 1.8 cm.
[2019-10-12] MEDS: LORazepam 2 MG/ML INJ IV PRN ×3 (00:01→22:23)
[2019-10-12] MEDS: MEROPENEM 2 GM in SODIUM CHLORIDE 0.9% 100 ML IVPB SCH ×3 (02:46→19:54)
[2019-10-12 07:02] LABS: Basophils % (A) 0 %; Eosinophils # (A) 0.3 k/uL (0-0.7); Eosinophils % (A) 3 %; HGB 12.4 gm/dL (13.0-17.5); Lymphocytes # (A) 1.4 k/uL (1.0-4.8); Lymphocytes % (A) 14 %; MCHC 31.9 g/dL (31.0-37.0); MCV 87.6 fL (80.0-100.0); Mean Platelet Volume 9.5; Monocytes # (A) 0.4 k/uL (0-1.0); Monocytes % (A) 4 %; Neutrophils # (A) 7.8 k/uL (1.3-7.7); Neutrophils % (A) 78 %; Platelet Count 195 k/uL (150-450); RBC 4.45 m/uL (4.30-5.90); RDW 13.5 % (11.5-15.5)
[2019-10-12 07:19] LABS: Albumin 3.7 g/dL (3.5-5.0); Calcium 9.3 mg/dL (8.4-10.2); Potassium 4.7 mmol/L (3.5-5.1); Total Bilirubin 0.7 mg/dL (0.2-1.3); Total Protein 6.7 g/dL (6.3-8.2)
[2019-10-12] MEDS: HEPARIN SODIUM,PORCINE 5,000 UNIT/ML 1 ML VIAL SQ SCH ×2 (10:53→22:23)
[2019-10-12] MEDS: LOSARTAN 25 MG TAB PO SCH (11:12)
[2019-10-12] MEDS: SODIUM CHLORIDE 0.9% 1,000 ML IV SCH ×3 (11:13→23:53)
[2019-10-12 11:51] LABS: Glucose,Whole Blood 173 mg/dL (75-99)
[2019-10-12] MEDS: PANTOPRAZOLE 40 MG/10 ML VIAL IV SCH (13:46)
[2019-10-12] MEDS: INSULIN ASPART (NovoLOG) 100 UNIT/ML VIAL SQ SCH ×2 (16:55→22:23)
[2019-10-12 17:20] LABS: Glucose,Whole Blood 123 mg/dL (75-99)
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
[2019-10-12 20:48] LABS: Glucose,Whole Blood 164 mg/dL (75-99)
[2019-10-12] MEDS: SERTRALINE 25 MG TAB PO SCH (22:22)
[2019-10-12] MEDS: DONEPEZIL 10 MG TAB PO SCH (22:23)
[2019-10-12 22:59] VITALS: RESP 16
[2019-10-13] MEDS: MEROPENEM 2 GM in SODIUM CHLORIDE 0.9% 100 ML IVPB SCH ×2 (03:55→11:37)
[2019-10-13 06:20] VITALS: BP 158/78; PULSE 65; TEMP 97.4
[2019-10-13 07:18] LABS: Glucose,Whole Blood 150 mg/dL (75-99)
[2019-10-13] MEDS: SODIUM CHLORIDE 0.9% 1,000 ML IV SCH (07:30)
[2019-10-13] MEDS: LORazepam 2 MG/ML INJ IV PRN (07:31)
[2019-10-13] MEDS: INSULIN ASPART (NovoLOG) 100 UNIT/ML VIAL SQ SCH ×2 (07:31→13:18)
[2019-10-13] MEDS: PANTOPRAZOLE 40 MG/10 ML VIAL IV SCH (07:32)
[2019-10-13] MEDS: HEPARIN SODIUM,PORCINE 5,000 UNIT/ML 1 ML VIAL SQ SCH (07:32)
[2019-10-13] MEDS: LOSARTAN 25 MG TAB PO SCH (07:32)
[2019-10-13 09:14] LABS: Basophils % (A) 0 %; Eosinophils # (A) 0.3 k/uL (0-0.7); Eosinophils % (A) 5 %; HCT 41.7 % (39.0-53.0); HGB 13.7 gm/dL (13.0-17.5); Lymphocytes # (A) 1.3 k/uL (1.0-4.8); Lymphocytes % (A) 22 %; MCH 28.6 pg (25.0-35.0); MCHC 32.8 g/dL (31.0-37.0); MCV 87.4 fL (80.0-100.0); Mean Platelet Volume 9.7; Monocytes # (A) 0.3 k/uL (0-1.0); Monocytes % (A) 5 %; Neutrophils # (A) 3.9 k/uL (1.3-7.7); Neutrophils % (A) 66 %; Platelet Count 210 k/uL (150-450); RBC 4.77 m/uL (4.30-5.90); RDW 13.3 % (11.5-15.5); WBC 5.8 k/uL (3.8-10.6)
[2019-10-13 09:22] LABS: Albumin 4.1 g/dL (3.5-5.0); Calcium 9.8 mg/dL (8.4-10.2); Potassium 4.9 mmol/L (3.5-5.1); Total Bilirubin 0.8 mg/dL (0.2-1.3); Total Protein 7.3 g/dL (6.3-8.2)
[2019-10-13 11:43] LABS: Glucose,Whole Blood 127 mg/dL (75-99)
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
== END 2019-10-13 15:57 | disposition home or self-care (01) | DRG 871 ==
LOC: EC 13:26 → 5NMEDONC 16:07 → 6NMEDSUR 10-12 15:13
PROVIDERS: ADMIT Hospitalist; ATTEND Hospitalist
DX: A41.9 Sepsis, unspecified organism (principal); K85.90 Acute pancreatitis without necrosis or infection, unspecified; E87.2 Acidosis; J98.11 Atelectasis; E11.22 Type 2 diabetes mellitus with diabetic chronic kidney disease; E78.5 Hyperlipidemia, unspecified; F03.90 Unspecified dementia, unspecified severity, without behavioral disturbance, psychotic disturbance, mood disturbance, and anxiety; I12.9 Hypertensive chronic kidney disease with stage 1 through stage 4 chronic kidney disease, or unspecified chronic kidney disease; N18.3 Chronic kidney disease, stage 3 (moderate); N40.0 Benign prostatic hyperplasia without lower urinary tract symptoms; Z79.82 Long term (current) use of aspirin; Z79.84 Long term (current) use of oral hypoglycemic drugs; Z79.899 Other long term (current) drug therapy; Z80.0 Family history of malignant neoplasm of digestive organs; Z82.0 Family history of epilepsy and other diseases of the nervous system; Z87.19 Personal history of other diseases of the digestive system; I95.1 Orthostatic hypotension
CPT/HCPCS: 36415; 71045; 74176; 76705; 80053; 80061; 81001; 82150; 82803; 83605; 83690; 83735; 84484; 85025; 85610; 85730; 86850; 86900; 86901; 87040; 93005; 96361; 96365; 96366; 96372; 96374; 96375; 96376; 99285

== ENCOUNTER → 2020-04-06 | Outpatient (CLI) | payer MEDICARE ==
--- NOTE | 2020-04-06 09:50 | XR ---
EXAMINATION TYPE: XR chest 2V DATE OF EXAM: 04/06/2020 COMPARISON: 10/11/2019 TECHNIQUE: PA and lateral views submitted. HISTORY: Cough possible pneumonia FINDINGS: The lungs are clear and there is no pneumothorax, pleural effusion, or focal pneumonia. Hypertrophi c and degenerative change of the spine. No interstitial edema. Heart size normal. Arthropathy of the shoulders. IMPRESSION: 1. No acute process.
== END | disposition home or self-care (01) ==
LOC: RADXRMAIN 09:25
PROVIDERS: ATTEND Family Medicine
DX: J18.1 Lobar pneumonia, unspecified organism (principal)
CPT/HCPCS: 71046

== ENCOUNTER → 2020-05-01 | Outpatient (CLI) | payer MEDICARE ==
--- NOTE | 2020-05-01 09:03 | US ---
EXAMINATION TYPE: US abdomen complete DATE OF EXAM: 05/01/2020 COMPARISON: CT 10/11/2019 CLINICAL HISTORY: R74.8 Abn levels of other serum enzymes. no symptoms EXAM MEASUREMENTS: Liver Length: 16.1 cm Gallbladder Wall: 0.3 cm CBD: 0.7 cm Spleen: 11.5 cm Right Kidney: 11.5 x 4.5 x 5.5 cm Left Kidney: 9.9 x 3.8 x 5.4 cm Pancreas: wnl Liver: high placement within chest, limited intercostal imaging of right lobe appeared wnl Gallbladder: wnl Evidence for sonographic Lopez's sign: no CBD: wnl Spleen: wnl Right Kidney: superior cyst seen = 3.1 x 3.3 x 2.9cm Left Kidney: medial cyst seen = 1.3 x 1.3 x 1.0cm Upper IVC: wnl Abd Aorta: wnl The liver is homogenous. The intrahepatic portion of the IVC and proximal abdominal aorta are within normal limits. There is no evidence of cholelithiasis. Common bile duct is unremarkable. The visu alized portions of the pancreas are homogenous. The spleen is unremarkable. Kidneys are symmetric a nd free of hydronephrosis. No renal lesions are seen. IMPRESSION: There are some limitations the exam. No significant abnormalities evident.
== END | disposition home or self-care (01) ==
LOC: RADUSWWP 07:03
PROVIDERS: ATTEND Family Medicine
DX: R74.8 Abnormal levels of other serum enzymes (principal)
CPT/HCPCS: 76700

== ENCOUNTER → 2020-05-09 | Outpatient (CLI) | payer MEDICARE ==
--- NOTE | 2020-05-09 10:18 | XR ---
EXAMINATION TYPE: XR lumbar spine 2 or 3V DATE OF EXAM: 05/09/2020 CLINICAL HISTORY: Chronic low back pain radiating into right hip. No known injury. TECHNIQUE: Frontal and lateral views of the lumbar spine obtained. COMPARISON: CT abdomen pelvis 10/11/2019 FINDINGS: There are 5 lumbar type vertebral bodies identified. The lumbar spine shows satisfactory alignment without evidence of acute fracture or dislocation. Vertebral body heights are within normal limits. There is mild disc space narrowing at T1-T2 and L5-S1. Grade 1 anterolisthesis of L5 on S1 w ith bilateral pars defects, as redemonstrated from 2019 [address] comparison. Multilevel anterolateral bridg ing osteophytes and facet arthropathy. Left hip arthroplasty incompletely visualized. Decreased osseo us mineralization. Degenerative changes of the sacroiliac joints, left greater than right. IMPRESSION: 1. No acute fracture or dislocation of the lumbar spine. 2. Marked multilevel degenerative changes as above and grade 1 anterolisthesis of L5 on S1. 3. Decreased osseous mineralization.
== END | disposition home or self-care (01) ==
LOC: RADXRMAIN 09:14
PROVIDERS: ATTEND Family Medicine
DX: M43.17 Spondylolisthesis, lumbosacral region (principal); M53.3 Sacrococcygeal disorders, not elsewhere classified; M85.88 Other specified disorders of bone density and structure, other site
CPT/HCPCS: 72100

== ENCOUNTER 2021-09-10 19:59 | Inpatient (IN) | payer MEDICARE ==
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
--- NOTE | 2021-09-10 22:29 | XR ---
EXAMINATION TYPE: XR chest 2V DATE OF EXAM: 09/10/2021 COMPARISON: 04/06/2020 HISTORY: Altered mental status TECHNIQUE: FINDINGS: Heart and mediastinum are normal. Lungs are clear. Diaphragm is normal. Bony thorax is inta ct. IMPRESSION: Normal chest. No change.
[2021-09-10 22:37] LABS: Basophils % (A) 1 %; Eosinophils # (A) 0.6 k/uL (0-0.7); Eosinophils % (A) 7 %; HCT 35.2 % (39.0-53.0); HGB 12.1 gm/dL (13.0-17.5); Lymphocytes # (A) 2.1 k/uL (1.0-4.8); Lymphocytes % (A) 24 %; MCHC 34.4 g/dL (31.0-37.0); MCV 84.3 fL (80.0-100.0); Mean Platelet Volume 8.7; Monocytes # (A) 0.4 k/uL (0-1.0); Monocytes % (A) 5 %; Neutrophils # (A) 5.6 k/uL (1.3-7.7); Neutrophils % (A) 63 %; Platelet Count 318 k/uL (150-450); RBC 4.17 m/uL (4.30-5.90); RDW 14.1 % (11.5-15.5); WBC 8.9 k/uL (3.8-10.6)
[2021-09-10 22:49] LABS: ALT 17 U/L (4-49); AST 23 U/L (17-59); African American GFR (CKD) 38 (>60 ml/min/1.73 sqM); Alcohol <10 mg/dL; Alkaline Phosphatase 63 U/L (38-126); Anion Gap 12 mmol/L; Blood Urea Nitrogen 18 mg/dL (9-20); Calcium 9.4 mg/dL (8.4-10.2); Carbon Dioxide 19 mmol/L (22-30); Chloride 109 mmol/L (98-107); Glucose 123 mg/dL (74-99); Non-African American GFR(CKD) 33 (>60 ml/min/1.73 sqM); Potassium 4.9 mmol/L (3.5-5.1); Sodium 140 mmol/L (137-145); Total Bilirubin 0.2 mg/dL (0.2-1.3); Total Protein 7.3 g/dL (6.3-8.2)
[2021-09-10 22:57] LABS: Partial Thromboplastin Time 22.7 sec (22.0-30.0); Prothrombin Time 11.1 sec (9.0-12.0)
[2021-09-10] MEDS ORDERED: ACETAMINOPHEN TAB 325 MG TAB PO PRN (23:01)
[2021-09-10] MEDS ORDERED: NALOXONE 0.4 MG/ML 1 ML VIAL IV PRN (23:01)
--- NOTE | 2021-09-10 23:10 | CT ---
EXAMINATION TYPE: CT brain wo con DATE OF EXAM: 09/10/2021 COMPARISON: 11/05/2017 HISTORY: Altered mental status CT DLP: 1114.4 mGycm Automated exposure control for dose reduction was used. There is cerebral cortical atrophy. There is no mass effect nor midline shift. There is no sign of in tracranial hemorrhage. There is a some enlargement of the ventricles. The calvarium is intact. Skull base is intact. There is normal aeration of the mastoid sinuses. IMPRESSION: Cerebral atrophy and hydrocephalus. No acute intracranial abnormality. No significant change.
[2021-09-10 23:18] LABS: Appearance,Urine Turbid (Clear); Bilirubin,Urine Negative (Negative); Blood,Urine Negative (Negative); Color,Urine Yellow; Glucose,Urine (UA) Negative (Negative); Hyaline Casts,Urine 4 /lpf (0-2); Ketones,Urine Negative (Negative); Leukocyte Esterase,Urine Negative (Negative); Mucus,Urine Rare /hpf; Nitrite,Urine Negative (Negative); PH, Urine 5.5 (5.0-8.0); Protein,Urine Negative (Negative); Specific Gravity,Urine 1.021 (1.001-1.035); Squamous Epithelial Cell,Urine <1 /hpf (0-4); Urobilinogen,Urine <2.0 mg/dL (<2.0); WBC,Urine 3 /hpf (0-5)
[2021-09-10] MEDS: SODIUM CHLORIDE 0.9% 1,000 ML IV SCH (23:58)
[2021-09-11] MEDS ORDERED: LORazepam 2 MG/ML INJ IV STA ×2 (00:52→03:19)
[2021-09-11 06:30] LABS: Glucose,Whole Blood 105 mg/dL (75-99)
[2021-09-11] MEDS: SODIUM CHLORIDE 0.9% 1,000 ML IV SCH ×2 (07:52→22:43)
[2021-09-11] MEDS ORDERED: metFORMIN 500 MG TAB PO SCH (09:00)
[2021-09-11 09:13] LABS: Basophils # (A) 0.07 X 10*3/uL (0.00-0.10); Basophils % (A) 0.8 %; Eosinophils # (A) 0.58 X 10*3/uL (0.04-0.35); Eosinophils % (A) 6.9 %; HCT 35.7 % (39.6-50.0); Lymphocytes # (A) 2.04 X 10*3/uL (0.90-5.00); Lymphocytes % (A) 24.1 %; MCH 27.5 pg (27.0-32.0); MCHC 30.8 g/dL (32.0-37.0); MCV 89.3 fL (80.0-97.0); Mean Platelet Volume 12.2 fL (9.5-12.2); Monocytes # (A) 0.59 X 10*3/uL (0.20-1.00); Neutrophils # (A) 5.15 X 10*3/uL (1.80-7.70); Neutrophils % (A) 60.8 %; Platelet Count 306 X 10*3/uL (140-440); RDW 14.3 % (11.5-14.5); WBC 8.46 X 10*3/uL (4.50-10.00)
[2021-09-11 09:21] LABS: INR 1.05 (0.90-1.11); Prothrombin Time 11.5 sec (9.9-11.9)
[2021-09-11 09:28] LABS: Magnesium 1.8 mg/dL (1.5-2.4)
[2021-09-11 09:29] LABS: ALT 15 U/L (10-49); AST 18 U/L (14-35); African American GFR (CKD) 41.2 (60.0-200.0); Albumin 3.9 g/dL (3.8-4.9); Alkaline Phosphatase 55 U/L (41-126); BUN/Creat Ratio 9.33 Ratio (12.00-20.00); Blood Urea Nitrogen 16.8 mg/dL (9.0-27.0); Calcium 8.9 mg/dL (8.7-10.3); Carbon Dioxide 19.7 mmol/L (20.0-27.5); Chloride 111 mmol/L (96-109); Globulin 2.6 g/dL (1.6-3.3); Glucose 109 mg/dL (70-110); Non-African American GFR(CKD) 35.5 (60.0-200.0); Potassium 5.1 mmol/L (3.5-5.5); Sodium 140 mmol/L (135-145); Total Bilirubin <0.20 mg/dL (0.30-1.20); Total Protein 6.5 g/dL (6.2-8.2)
[2021-09-11] MEDS: MEMANTINE 10 MG TAB PO SCH ×2 (09:52→22:37)
[2021-09-11] MEDS: FENOFIBRATE 160 MG TAB PO SCH (09:52)
[2021-09-11] MEDS ORDERED: HALOPERIDOL LACTATE 5 MG/ML 1 ML VIAL IVP PRN (12:06)
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
[2021-09-11] MEDS ORDERED: HALOPERIDOL LACTATE 5 MG/ML 1 ML VIAL IVP STA ×2 (13:16→13:49)
[2021-09-11 17:41] LABS: Glucose,Whole Blood 130 mg/dL (75-99)
[2021-09-11 20:23] LABS: Glucose,Whole Blood 153 mg/dL (75-99)
[2021-09-11] MEDS ORDERED: QUEtiapine 25 MG TAB PO SCH (21:00)
[2021-09-11] MEDS ORDERED: SERTRALINE 25 MG TAB PO SCH (21:00)
[2021-09-11] MEDS: DONEPEZIL 10 MG TAB PO SCH (22:36)
[2021-09-11] MEDS: ATORVASTATIN 20 MG TAB PO SCH (22:36)
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
[2021-09-12] MEDS: CYANOCOBALAMIN 1,000 MCG/ML 1 ML VIAL IM SCH (00:52)
[2021-09-12] MEDS: SODIUM CHLORIDE 0.9% 1,000 ML IV SCH ×4 (04:19→20:22)
[2021-09-12] MEDS: MEMANTINE 10 MG TAB PO SCH ×2 (07:36→19:15)
[2021-09-12] MEDS: FENOFIBRATE 160 MG TAB PO SCH (07:37)
[2021-09-12] MEDS: FOLIC ACID 1 MG TAB PO SCH (07:39)
[2021-09-12] MEDS: ENOXAPARIN 40 MG/0.4 ML SYRINGE SQ SCH (07:39)
[2021-09-12 08:08] LABS: Glucose,Whole Blood 146 mg/dL (75-99)
[2021-09-12 12:02] LABS: African American GFR (CKD) 44.1 (60.0-200.0); Anion Gap 11.7 mmol/L (10.00-18.00); BUN/Creat Ratio 8.29 Ratio (12.00-20.00); Blood Urea Nitrogen 14.1 mg/dL (9.0-27.0); Calcium 9.3 mg/dL (8.7-10.3); Carbon Dioxide 20.3 mmol/L (20.0-27.5); Non-African American GFR(CKD) 38.1 (60.0-200.0); Potassium 4.8 mmol/L (3.5-5.5)
[2021-09-12 12:05] LABS: Glucose,Whole Blood 230 mg/dL (75-99)
[2021-09-12] MEDS: INSULIN ASPART (NovoLOG) 100 UNIT/ML VIAL SQ SCH ×3 (13:24→20:22)
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
--- NOTE | 2021-09-12 14:30 | P.PN ---
Subjective Progress Note Date: 09/12/21 76-year-old pleasant male came in the with the city increased agitation episodes at home. Patient was brought in by his . 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 Lately patient's is unable to handle him. When I evaluated the patient patient is pretty pretty pleasant as he received Seroquel. Patient's did attempt to give him Seroquel which was unsuccessful. Patient was trying to go to neighbors Homes is also found to have elevated serum creatinine patient appears to be dehydrated clinically patient will be started on IV fluids. Patient doesn't have any fever chills patient and her nausea vomiting abdominal pain dysuria. 09/12/2021 Patient is very today resting in bed on the sixth floor. He was alert times person at the time of my evaluation. He was unable to say his birthday but did state that he was in the 60s for age. He is having auditory hallucinations, however was redirectable and was appropriate. Patient was not agitated or combative. Patient was developing neurology did recommend a psych evaluation for medication adjustment due to acute agitation related to Alzheimer dementia diagnosis about 2 years ago. Patient does take Namenda and Aricept daily. Psychiatry recommended the addition of Depakote as a mood stabilizer in addition to increasing the nighttime dosing of Seroquel to 50 mg. Haldol can also be utilized as needed for an acute agitation. Vital signs today show temperature 97.7, heart rate 60 sinus rhythm, blood pressure 160/79 and he is 100% on room air. Labs today show potassium of 4.8, chloride 109, CO2 20.3, BUN 14.1, creatinine 1.7, GFR is 38. Sugars remain elevated in the 200s. Folae was on with the lower side, supplementation was added from neurology. We are currently pending placement for this patient. REVIEW OF SYSTEMS: Other review of systems are negative except those mentioned above patient is not a reliable historian PHYSICAL EXAMINATION: GENERAL: The patient is alert and oriented x1 is his baseline, not in any acute distress. Well developed, well nourished. HEENT: Pupils are round and equally reacting to light. EOMI. No scleral icterus. No conjunctival pallor. Normocephalic, atraumatic. No pharyngeal erythema. No thyromegaly. CARDIOVASCULAR: S1 and S2 present. No murmurs, rubs, or gallops. PULMONARY: Chest is clear to auscultation, no wheezing or crackles. ABDOMEN: Soft, nontender, nondistended, normoactive bowel sounds. No palpable organomegaly. MUSCULOSKELETAL: No joint swelling or deformity. EXTREMITIES: No cyanosis, clubbing, or pedal edema. NEUROLOGICAL: Gross neurological examination did not reveal any focal deficits. Some bilateral lower extremity muscle atrophy SKIN: No rashes. Assessment and plan -Acute renal failure: Prerenal azotemia from poor by mouth intake patient baseline creatinine is around 1, creatinine today 1.7, continue with IV fluids. -Worsening dementia with agitation episodes: Increase Seroquel, Haldol as needed and Depakote was added for a mood stabilizer -History of Alzheimer dementia diagnosed 2 years ago -Hypertension -Hyperlipidemia -Benign prostatic hypertrophy DVT prophylaxis: Lovenox Full code Plan Repeat labs tomorrow Continue with medication adjustments PO Haldol for acute agitation in addition to scheduled seroquel, depakote Placement on discharge, should be ready for discharge tomorrow. Objective - Vital Signs Vital signs: Vital Signs Temp 97.7 F 09/12/21 07:00 Pulse 68 09/12/21 07:00 Resp 16 09/12/21 07:00 BP 160/69 09/12/21 07:00 Pulse Ox 100 09/12/21 07:00 Intake & Output 09/11/21 09/12/21 09/12/21 18:59 06:59 18:59 Intake Total 180 Balance 180 Intake: Oral 180 Other: # Voids 3 1 - Labs CBC & Chem 7: 09/11/21 04:10 09/12/21 07:07 Labs: Abnormal Lab Results - Last 24 Hours (Table) 09/11/21 09/11/21 09/11/21 Range/Units 04:10 17:39 20:21 POC Glucose (mg/dL) 130 H 153 H (75-99) mg/dL Folate 3.40 L (4.40-31.00) ng/mL 09/12/21 Range/Units 08:06 POC Glucose (mg/dL) 146 H (75-99) mg/dL Folate (4.40-31.00) ng/mL Assessment and Plan Time with Patient: Greater than 30
[2021-09-12] MEDS: DIVALPROEX 250 MG TABLET.DR PO SCH ×2 (15:29→19:15)
[2021-09-12 18:10] LABS: Glucose,Whole Blood 123 mg/dL (75-99)
[2021-09-12] MEDS: DONEPEZIL 10 MG TAB PO SCH (19:15)
[2021-09-12] MEDS: ATORVASTATIN 20 MG TAB PO SCH (19:15)
[2021-09-12 19:56] LABS: Glucose,Whole Blood 174 mg/dL (75-99)
[2021-09-12] MEDS ORDERED: HALOPERIDOL LACTATE 5 MG/ML 1 ML VIAL IM STA (20:39)
[2021-09-12] MEDS ORDERED: QUEtiapine 50 MG TAB PO SCH ×2 (21:00)
[2021-09-13 07:29] LABS: Glucose,Whole Blood 109 mg/dL (75-99)
[2021-09-13] MEDS: INSULIN ASPART (NovoLOG) 100 UNIT/ML VIAL SQ SCH ×4 (09:37→20:01)
[2021-09-13] MEDS: CYANOCOBALAMIN 1,000 MCG/ML 1 ML VIAL IM SCH (09:38)
[2021-09-13] MEDS: MEMANTINE 10 MG TAB PO SCH ×2 (09:39→19:21)
[2021-09-13] MEDS: DIVALPROEX 250 MG TABLET.DR PO SCH ×2 (09:39→19:20)
[2021-09-13] MEDS: FOLIC ACID 1 MG TAB PO SCH (09:39)
[2021-09-13] MEDS: FENOFIBRATE 160 MG TAB PO SCH (09:39)
[2021-09-13] MEDS: ENOXAPARIN 40 MG/0.4 ML SYRINGE SQ SCH (09:39)
[2021-09-13] MEDS: SODIUM CHLORIDE 0.9% 1,000 ML IV SCH ×4 (10:41→22:50)
[2021-09-13 11:26] LABS: Glucose,Whole Blood 124 mg/dL (75-99)
[2021-09-13 12:13] LABS: African American GFR (CKD) 52 (>60 ml/min/1.73 sqM); Anion Gap 8 mmol/L; Blood Urea Nitrogen 14 mg/dL (9-20); Calcium 9.4 mg/dL (8.4-10.2); Carbon Dioxide 20 mmol/L (22-30); Chloride 112 mmol/L (98-107); Glucose 130 mg/dL (74-99); Non-African American GFR(CKD) 45 (>60 ml/min/1.73 sqM); Potassium 4.6 mmol/L (3.5-5.1); Sodium 140 mmol/L (137-145)
--- NOTE | 2021-09-13 13:13 | P.PN ---
Subjective Progress Note Date: 09/13/21 76-year-old pleasant male came in the with the city increased agitation episodes at home. Patient was brought in by his . 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 Lately patient's is unable to handle him. When I evaluated the patient patient is pretty pretty pleasant as he received Seroquel. Patient's did attempt to give him Seroquel which was unsuccessful. Patient was trying to go to neighbors Homes is also found to have elevated serum creatinine patient appears to be dehydrated clinically patient will be started on IV fluids. Patient doesn't have any fever chills patient and her nausea vomiting abdominal pain dysuria. 09/12/2021 Patient is very today resting in bed on the sixth floor. He was alert times person at the time of my evaluation. He was unable to say his birthday but did state that he was in the 60s for age. He is having auditory hallucinations, however was redirectable and was appropriate. Patient was not agitated or combative. Patient was developing neurology did recommend a psych evaluation for medication adjustment due to acute agitation related to Alzheimer dementia diagnosis about 2 years ago. Patient does take Namenda and Aricept daily. Psychiatry recommended the addition of Depakote as a mood stabilizer in addition to increasing the nighttime dosing of Seroquel to 50 mg. Haldol can also be utilized as needed for an acute agitation. Vital signs today show temperature 97.7, heart rate 60 sinus rhythm, blood pressure 160/79 and he is 100% on room air. Labs today show potassium of 4.8, chloride 109, CO2 20.3, BUN 14.1, creatinine 1.7, GFR is 38. Sugars remain elevated in the 200s. Folae was on with the lower side, supplementation was added from neurology. We are currently pending placement for this patient. 09/13/2021 Patient is evaluated today sitting on the edge of the bed. He is alert x1 and appropriate. Prostate is at the bedside states the patient ate 100% of his breakfast. Patient required a dose of by mouth Haldol last night at about 8 PM. He also received 50 mg Seroquel at bedtime. We will increase seorquel today discontinue the Haldol as patient cannot discharge to rehab on haldol. We will also discontinue the safety specialist. If the patient does well overnight he'll be able to be discharged to rehab hopefully tomorrow. Temp of 97.9, heart rate 62, blood pressure 160/75 and he is 98% on room air. Creatinine is improving today 1.48, repeat tomorrow. REVIEW OF SYSTEMS: Other review of systems are negative except those mentioned above patient is not a reliable historian PHYSICAL EXAMINATION: GENERAL: The patient is alert and oriented x1 is his baseline, not in any acute distress. Well developed, well nourished. HEENT: Pupils are round and equally reacting to light. EOMI. No scleral icterus. No conjunctival pallor. Normocephalic, atraumatic. No pharyngeal erythema. No thyromegaly. CARDIOVASCULAR: S1 and S2 present. No murmurs, rubs, or gallops. PULMONARY: Chest is clear to auscultation, no wheezing or crackles. ABDOMEN: Soft, nontender, nondistended, normoactive bowel sounds. No palpable organomegaly. MUSCULOSKELETAL: No joint swelling or deformity. EXTREMITIES: No cyanosis, clubbing, or pedal edema. NEUROLOGICAL: Gross neurological examination did not reveal any focal deficits. Some bilateral lower extremity muscle atrophy SKIN: No rashes. Assessment and plan -Acute renal failure: Prerenal azotemia from poor oral intake, trending down currently 1.4 -Worsening dementia with agitation episodes: Increase Seroquel, continue depakote, and stop haldol -History of Alzheimer dementia diagnosed 2 years ago -Hypertension -Hyperlipidemia -Benign prostatic hypertrophy DVT prophylaxis: Lovenox Full code Plan Repeat labs tomorrow Continue with medication adjustments Discontinue safety specialist/haldol for 24 hours prior to discharge to rehab Psych consult Shades open during day If patient is sleeping well throughout the evening, do not wake for vital signs, let him sleep. Objective - Vital Signs Vital signs: Vital Signs Temp 97.9 F 09/13/21 07:00 Pulse 62 09/13/21 07:00 Resp 18 09/13/21 08:00 BP 160/75 09/13/21 07:00 Pulse Ox 98 09/13/21 07:00 Intake & Output 09/12/21 09/13/21 09/13/21 18:59 06:59 18:59 Intake Total 360 180 Balance 360 180 Intake: Oral 360 180 Other: # Voids 1 3 - Labs CBC & Chem 7: 09/11/21 04:10 09/13/21 11:13 Labs: Abnormal Lab Results - Last 24 Hours (Table) 09/12/21 09/12/21 09/13/21 Range/Units 18:08 19:54 07:27 Chloride (98-107) mmol/L Carbon Dioxide (22-30) mmol/L Creatinine (0.66-1.25) mg/dL Glucose (74-99) mg/dL POC Glucose (mg/dL) 123 H 174 H 109 H (75-99) mg/dL 09/13/21 09/13/21 Range/Units 11:13 11:25 Chloride 112 H (98-107) mmol/L Carbon Dioxide 20 L (22-30) mmol/L Creatinine 1.48 H (0.66-1.25) mg/dL Glucose 130 H (74-99) mg/dL POC Glucose (mg/dL) 124 H (75-99) mg/dL Assessment and Plan Time with Patient: Greater than 30
[2021-09-13] MEDS: QUEtiapine 25 MG TAB PO SCH (14:53)
[2021-09-13 18:06] LABS: Glucose,Whole Blood 120 mg/dL (75-99)
[2021-09-13] MEDS: DONEPEZIL 10 MG TAB PO SCH (19:20)
[2021-09-13] MEDS: ATORVASTATIN 20 MG TAB PO SCH (19:20)
[2021-09-13 19:44] LABS: Glucose,Whole Blood 184 mg/dL (75-99)
[2021-09-13] MEDS ORDERED: QUEtiapine 50 MG TAB PO SCH (21:00)
[2021-09-13] MEDS ORDERED: QUEtiapine 100 MG TAB PO SCH (21:00)
[2021-09-13 21:24] VITALS: RESP 18
[2021-09-14 01:01] VITALS: TEMP 97.6
[2021-09-14 07:30] LABS: Glucose,Whole Blood 102 mg/dL (75-99)
[2021-09-14] MEDS: INSULIN ASPART (NovoLOG) 100 UNIT/ML VIAL SQ SCH ×2 (07:57→11:46)
[2021-09-14 08:55] VITALS: BP 149/74; PULSE 68
[2021-09-14] MEDS: ENOXAPARIN 40 MG/0.4 ML SYRINGE SQ SCH (09:14)
[2021-09-14] MEDS: MEMANTINE 10 MG TAB PO SCH (09:14)
[2021-09-14] MEDS: DIVALPROEX 250 MG TABLET.DR PO SCH (09:14)
[2021-09-14] MEDS: FENOFIBRATE 160 MG TAB PO SCH (09:14)
[2021-09-14] MEDS: FOLIC ACID 1 MG TAB PO SCH (09:14)
[2021-09-14] MEDS: QUEtiapine 25 MG TAB PO SCH (09:15)
[2021-09-14] MEDS: CYANOCOBALAMIN 1,000 MCG/ML 1 ML VIAL IM SCH (09:15)
[2021-09-14 11:27] LABS: Glucose,Whole Blood 121 mg/dL (75-99)
--- NOTE | 2021-09-14 11:41 | P.DS ---
Providers Date of admission: 09/11/21 13:16 Attending physician: Mohan Rodas MD Primary care physician: Natalio [facility] Course: Final Diagnosis Final diagnoses -Acute renal failure: Prerenal azotemia from poor oral intake, trending down currently 1.4 -Worsening dementia with agitation episodes: Increase Seroquel, Haldol as needed and Depakote was added for a mood stabilizer -History of Alzheimer dementia diagnosed 2 years ago -Hypertension -Hyperlipidemia -Benign prostatic hypertrophy Discharge Disposition Patient is cleared medically [facility]. Patient did well overnight with changes to seroquel and discontinuing the haldol. He did not require a director of safety at the bedside for the last 24 hours. Hospital Course 76-year-old pleasant male came in the with the city increased agitation episodes at home. Patient was brought in by his . 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 Lately patient's is unable to handle him. When I evaluated the patient patient is pretty pretty pleasant as he received Seroquel. Patient's did attempt to give him Seroquel which was unsuccessful. Patient was trying to go to [facility] is also found to have elevated serum creatinine patient appears to be dehydrated clinically patient will be started on IV fluids. Patient doesn't have any fever chills patient and her nausea vomiting abdominal pain dysuria. Patient was evaluated by neurology and psychiatry. Recommended to not given benzodiazepines, stop zoloft and can use seroquel. Psychiatry also added depakote for mood. IV fluids were started. Patient responded well his current creatinine is 1.48, pending repeat from today. Vital signs remain stable. 09/14/2021 No acute events over night, patient is alert x1 at the time of my assessment. He is appropriate and is redirectible. He denies any pain. We are clearing medically for discharge today. Vital signs are stable. Please see medication reconciliation for a list of current medications. Thank shon boyer for allowing us to participate in the care of this patient. Patient Condition at Discharge: Fair Plan - Discharge Summary New Discharge Prescriptions: New Acetaminophen Tab [Tylenol] 650 mg PO Q6HR PRN tab PRN Reason: Mild Pain Or Fever > 100.5 QUEtiapine [SEROquel] 25 mg PO DAILY tab QUEtiapine [SEROquel] 50 mg PO HS tab Divalproex [Depakote] 250 mg PO BID #0 tablet Folic Acid 1 mg PO DAILY tab Cyanocobalamin (Vitamin B-12) [Vitamin B-12] 1,000 mcg PO DAILY #3 tablet Continue Simvastatin [Zocor] 40 mg PO HS Donepezil [Aricept] 10 mg PO HS Fenofibrate 160 mg PO DAILY metFORMIN HCL [Glucophage] 1,000 mg PO BID #60 tab Irbesartan 75 mg PO DAILY Memantine [Namenda] 10 mg PO BID Discontinued Sertraline [Zoloft] 25 mg PO HS QUEtiapine [SEROquel] 25 mg PO HS Discharge Medication List Simvastatin [Zocor] 40 mg PO HS 01/11/16 [History] Donepezil [Aricept] 10 mg PO HS 09/30/18 [History] Fenofibrate 160 mg PO DAILY 09/30/18 [History] metFORMIN HCL [Glucophage] 1,000 mg PO BID #60 tab 10/03/18 [Rx] Irbesartan 75 mg PO DAILY 10/11/19 [History] Memantine [Namenda] 10 mg PO BID 09/10/21 [History] Acetaminophen Tab [Tylenol] 650 mg PO Q6HR PRN tab 09/13/21 [Rx] Cyanocobalamin (Vitamin B-12) [Vitamin B-12] 1,000 mcg PO DAILY #3 tablet 09/13/21 [Rx] Divalproex [Depakote] 250 mg PO BID #0 tablet 09/13/21 [Rx] Folic Acid 1 mg PO DAILY tab 09/13/21 [Rx] QUEtiapine [SEROquel] 25 mg PO DAILY tab 09/14/21 [Rx] QUEtiapine [SEROquel] 50 mg PO HS tab 09/14/21 [Rx] Follow up Appointment(s)/Referral(s): Natalio Will DO [Primary Care Provider] - 1-2 days Ambulatory/Diagnostic Orders: Basic Metabolic Panel [LAB.AMB] Time Frame: 2 Days, Location: None Selected Patient Instructions/Handouts: Dehydration (DC), Acute Kidney Injury (DC) Discharge Disposition: TRANSFER TO SNF/ECF
[2021-09-14 12:38] LABS: African American GFR (CKD) 44 (>60 ml/min/1.73 sqM); Anion Gap 8 mmol/L; Blood Urea Nitrogen 19 mg/dL (9-20); Calcium 9.8 mg/dL (8.4-10.2); Carbon Dioxide 25 mmol/L (22-30); Chloride 110 mmol/L (98-107); Glucose 138 mg/dL (74-99); Non-African American GFR(CKD) 38 (>60 ml/min/1.73 sqM); Potassium 4.9 mmol/L (3.5-5.1); Sodium 143 mmol/L (137-145)
== END 2021-09-14 14:18 | DRG 683 ==
LOC: EC 19:59 → 6NMEDSUR 23:01 → OBSVTOIN 09-11 13:16 → 6NMEDSUR 09-11 14:06
PROVIDERS: ADMIT Internal Medicine; ATTEND Internal Medicine
DX: N17.9 Acute kidney failure, unspecified (principal); F02.81 Dementia in other diseases classified elsewhere, unspecified severity, with behavioral disturbance; G91.9 Hydrocephalus, unspecified; G30.9 Alzheimer's disease, unspecified; E11.9 Type 2 diabetes mellitus without complications; Z20.822 Contact with and (suspected) exposure to COVID-19; E86.0 Dehydration; I10 Essential (primary) hypertension; N40.0 Benign prostatic hyperplasia without lower urinary tract symptoms; E78.5 Hyperlipidemia, unspecified; M54.40 Lumbago with sciatica, unspecified side; Z79.84 Long term (current) use of oral hypoglycemic drugs; Z79.899 Other long term (current) drug therapy; Z87.828 Personal history of other (healed) physical injury and trauma; Z96.642 Presence of left artificial hip joint; Z87.39 Personal history of other diseases of the musculoskeletal system and connective tissue; Z90.89 Acquired absence of other organs; Z86.010 Personal history of colon polyps; Z98.890 Other specified postprocedural states; Z80.0 Family history of malignant neoplasm of digestive organs; Z82.0 Family history of epilepsy and other diseases of the nervous system
CPT/HCPCS: 36415; 70450; 71046; 80048; 80053; 80320; 81001; 82607; 82746; 83605; 83735; 84145; 84443; 84484; 85025; 85610; 85730; 86780; 87635; 93005; 96374; 96375; 96376; 99285

== ENCOUNTER 2022-03-12 20:34 | Inpatient (IN) | payer MEDICARE, OTHER ==
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
--- NOTE | 2022-03-12 21:37 | CT ---
EXAMINATION TYPE: CT hip LT wo con, CT pelvis wo con CT DLP: 444.4 mGycm, Automated exposure control for dose reduction was used. DATE OF EXAM: 03/12/2022 9:21 PM COMPARISON: None CLINICAL INDICATION:Male, 76 years old with history of left hip pain; TECHNIQUE: Axial images were obtained of the left hip and pelvis without the use of IV contrast. Add itional coronal and sagittal reformatted images and soft tissue and bone window were obtained for rev iew. 3-D reconstruction was created on a separate workstation. FINDINGS: There is left periprosthetic fracture best appreciated on axial imaging with fracture extending throu gh the left femoral intertrochanteric region. There is approximately 3 mm displacement of this anteri or cortex fracture fragment. Left hip prosthesis appears intact. Degeneration changes of the right h ip with joint space narrowing and osteophyte formation. Multilevel disc degeneration changes are seen throughout the spine. There is atherosclerosis of the a rterial vasculature. Fatty changes to the bilateral inguinal canals are present. There are multiple bladder stones in the urinary bladder, largest measuring up to 25 mm. Prostate is enlarged measuring up to 5.4 cm's. IMPRESSION: 1. Left periprosthetic fracture involving the left intertrochanteric region of the femur. 2. Multiple bladder stones. 3. Prostatomegaly. Correlate with serum PSA.
[2022-03-12] MEDS ORDERED: MORPHINE SULFATE 2 MG/ML SYRINGE IVP STA (22:09)
[2022-03-12] MEDS ORDERED: ONDANSETRON 4 MG/2 ML VIAL IVP STA (22:09)
[2022-03-12] MEDS ORDERED: NALOXONE 0.4 MG/ML 1 ML VIAL IV PRN (22:11)
[2022-03-12] MEDS ORDERED: ACETAMINOPHEN TAB 325 MG TAB PO PRN (22:11)
[2022-03-12] MEDS ORDERED: ONDANSETRON 4 MG/2 ML VIAL IVP PRN (22:11)
[2022-03-12] MEDS ORDERED: QUEtiapine 50 MG TAB PO STA (22:15)
[2022-03-12] MEDS: HEPARIN SODIUM,PORCINE/PF 5,000 UNIT/0.5 ML SYRINGE SQ SCH (22:42)
[2022-03-12 22:57] LABS: Basophils # (A) 0.1 k/uL (0-0.2); Basophils % (A) 1 %; Eosinophils # (A) 0.4 k/uL (0-0.7); Eosinophils % (A) 4 %; HCT 37.9 % (39.0-53.0); HGB 11.6 gm/dL (13.0-17.5); Lymphocytes # (A) 1.6 k/uL (1.0-4.8); Lymphocytes % (A) 14 %; MCH 27.5 pg (25.0-35.0); MCHC 30.6 g/dL (31.0-37.0); MCV 89.9 fL (80.0-100.0); Mean Platelet Volume 8.1; Monocytes # (A) 0.4 k/uL (0-1.0); Monocytes % (A) 4 %; Neutrophils % (A) 77 %; Platelet Count 313 k/uL (150-450); RBC 4.22 m/uL (4.30-5.90); RDW 13.2 % (11.5-15.5); WBC 11.7 k/uL (3.8-10.6)
[2022-03-12 23:05] LABS: Partial Thromboplastin Time 23.6 sec (22.0-30.0)
[2022-03-12 23:08] LABS: Albumin 3.6 g/dL (3.5-5.0); Potassium 4.8 mmol/L (3.5-5.1); Total Bilirubin 0.2 mg/dL (0.2-1.3); Total Protein 7.3 g/dL (6.3-8.2)
--- NOTE | 2022-03-12 23:18 | XR ---
EXAMINATION TYPE: XR chest 1V portable DATE OF EXAM: 03/12/2022 COMPARISON: 09/10/2021 HISTORY: Trauma. Pain TECHNIQUE: Single view FINDINGS: Heart is normal. Lungs are clear of infiltrate. There is no pleural effusion. There are no hilar masses. IMPRESSION: No active cardiopulmonary disease. Normal heart. No change.
[2022-03-13] MEDS: SODIUM CHLORIDE 0.9% 1,000 ML IV SCH (00:12)
[2022-03-13] MEDS: HEPARIN SODIUM,PORCINE/PF 5,000 UNIT/0.5 ML SYRINGE SQ SCH ×3 (00:13→20:00)
[2022-03-13 05:10] VITALS: RESP 16
[2022-03-13 06:59] LABS: Glucose,Whole Blood 99 mg/dL (75-99)
[2022-03-13] MEDS: INSULIN ASPART (NovoLOG) 100 UNIT/ML VIAL SQ SCH ×3 (07:43→17:30)
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
[2022-03-13] MEDS: MORPHINE SULFATE 2 MG/ML SYRINGE IV PRN ×2 (11:35→16:32)
[2022-03-13 11:52] LABS: Glucose,Whole Blood 93 mg/dL (75-99)
--- NOTE | 2022-03-13 14:05 | CONS ---
CONSULTATION REASON FOR CONSULTATION: Advice regarding diabetes mellitus and other medical issues, requested by Orthopedic Surgery. HISTORY OF PRESENT ILLNESS: This 76-year-old gentleman with a past medical history of diabetes, hypertension, hyperlipidemia, being followed by Dr. Natalio Will in the outpatient setting, was admitted with a periprosthetic fracture. Orthopedics has seen the patient and recommended conservative line of management. No chest pain. No palpitations. No fever. Patient has significant dementia. PAST MEDICAL HISTORY: Reviewed. It includes dementia, diabetes mellitus, hyperlipidemia. HOME MEDICATIONS: Reviewed. They include magnesium. Doses and the rest of the medications are reviewed. ALLERGIES: NONE. Family history, social history, review of systems could not be taken because of severe dementia. PHYSICAL EXAMINATION: Pulse is 57, blood pressure ntd, respirations 16. CHEST: Clear to auscultation. CARDIOVASCULAR: S1, S2 muffled. ABDOMEN: Soft, nontender. NERVOUS SYSTEM: No focal deficit. EXAMINATION OF THE LEFT HIP: Painful with fracture. SKIN: No ulcer, rash, bleeding. JOINTS: No active deforming arthropathy. NECK: No jugular venous distention. LABS: WBC ntd_, hemoglobin ntd. Other labs are reviewed. ASSESSMENT: 1. Status post left hip periprosthetic fracture. 2. Diabetes mellitus, type 2. 3. Hypertension. 4. Hyperlipidemia. 5. Severe dementia. RECOMMENDATIONS AND DISCUSSION: In this 76-year-old gentleman who presented with multiple medical issues, at this time I recommend to continue current medications. Patient is medically stable. I would recommend resuming the home medications. Pain management. Rest of the recommendations per Orthopedic Surgery. Further recommendations to follow. MMODL / IJN: [id number] / ADALID
[2022-03-13 17:19] LABS: Glucose,Whole Blood 118 mg/dL (75-99)
[2022-03-14] MEDS: INSULIN ASPART (NovoLOG) 100 UNIT/ML VIAL SQ SCH ×2 (00:58→08:42)
[2022-03-14 01:59] LABS: Glucose,Whole Blood 96 mg/dL (75-99)
[2022-03-14] MEDS: SODIUM CHLORIDE 0.9% 1,000 ML IV SCH (04:04)
[2022-03-14 05:49] VITALS: BP 112/54; PULSE 58; TEMP 97.9
[2022-03-14 06:50] LABS: Glucose,Whole Blood 94 mg/dL (75-99)
[2022-03-14] MEDS: HEPARIN SODIUM,PORCINE/PF 5,000 UNIT/0.5 ML SYRINGE SQ SCH (08:42)
--- NOTE | 2022-03-14 10:28 | P.DS ---
Providers Date of admission: 03/12/22 22:22 Expected date of discharge: 03/14/22 Attending physician: Damon Leiva Consults: 03/12/22 22:11 Consult Physician Urgent Consulting Provider: Sue Rubin Consult Reason/Comments: Medical management Do you want consulting provider notified?: Yes Primary care physician: Natalio Will - Discharge Diagnosis(es) (1) Periprosthetic fracture around internal prosthetic left hip joint Current Visit: Yes Status: Acute (2) Fall Current Visit: Yes Status: Acute Hospital Course: This is a 76-year-old male who sustained a periprosthetic fracture of the left hip after a fall at [facility]. The patient presented for evaluation in the emergency room where a CT of the left hip revealed periprosthetic fracture of the left hip. Patient is admitted to [facility] on 03/12/2022. After discussion and consideration nonsurgical treatment is recommended at this time. Labs and vital signs are stable on day of discharge. On day of discharge there is minimal soft tissue swelling to the hip and thigh. Patient has full foot and ankle motion without difficulty or pain. Calf is soft and nontender to palpation. Neurovascular status to the left lower extremity is intact. Patient is discharged back to [facility] in good condition. Please see med rec for accurate list of home medications. Patient Condition at Discharge: Stable Plan - Discharge Summary Discharge Rx Participant: No New Discharge Prescriptions: Continue Simvastatin [Zocor] 40 mg PO HS@2000 metFORMIN HCL [Glucophage] 1,000 mg PO BID #60 tab Memantine [Namenda] 10 mg PO BID Magnesium Hydroxide [Milk of Magnesia] 2,400 mg PO Q72H PRN PRN Reason: Constipation Loperamide HCl [Imodium A-D] 2 mg PO QID PRN PRN Reason: Loose Stool Acetaminophen Tab [Tylenol] 650 mg PO Q6HR QUEtiapine [SEROquel] 50 mg PO HS@2000 Cholestyramine (with Sugar) [Questran Packet] 4 gm PO DAILY@0700 Losartan [Cozaar] 25 mg PO DAILY Cyanocobalamin (Vitamin B-12) [Vitamin B-12] 1,000 mcg PO DAILY@0700 Divalproex [Depakote] 250 mg PO BID #0 tablet Acetaminophen Tab [Tylenol] 650 mg PO Q6H PRN PRN Reason: DEMENTIA Healthshake 1 can PO BID Folic Acid 0.4 mg PO HS@1999 Discontinued Sulfamethox-Tmp 800-160Mg [Bactrim DS 800-160 mg] 1 tab PO BID Discharge Medication List Simvastatin [Zocor] 40 mg PO HS@199901/11/16 [History] metFORMIN HCL [Glucophage] 1,000 mg PO BID #60 tab 10/03/18 [Rx] Memantine [Namenda] 10 mg PO BID 09/10/21 [History] Divalproex [Depakote] 250 mg PO BID #0 tablet 09/13/21 [Rx] Acetaminophen Tab [Tylenol] 650 mg PO Q6H PRN 03/12/22 [History] Acetaminophen Tab [Tylenol] 650 mg PO Q6HR 03/12/22 [History] Cholestyramine (with Sugar) [Questran Packet] 4 gm PO DAILY@0700 03/12/22 [History] Cyanocobalamin (Vitamin B-12) [Vitamin B-12] 1,000 mcg PO DAILY@0700 03/12/22 [History] Folic Acid 0.4 mg PO HS@199903/12/22 [History] Healthshake 1 can PO BID 03/12/22 [History] Loperamide HCl [Imodium A-D] 2 mg PO QID PRN 03/12/22 [History] Losartan [Cozaar] 25 mg PO DAILY 03/12/22 [History] Magnesium Hydroxide [Milk of Magnesia] 2,400 mg PO Q72H PRN 03/12/22 [History] QUEtiapine [SEROquel] 50 mg PO HS@199903/12/22 [History] Follow up Appointment(s)/Referral(s): Natalio Will DO [Primary Care Provider] - 1-2 days Damon Leiva DO [Doctor of Osteopathic Medicine] - 2 Weeks Ambulatory/Diagnostic Orders: Complete Blood Count w/diff [LAB.AMB] Time Frame: 3 Days, Location: None Selected Activity/Diet/Wound Care/Special Instructions: Recommend follow-up with primary care provider Recommend continuing with current medications and avoid Motrins or NSAIDs Recommend repeat labs of CBC and BMP in 2-3 days Discharge Disposition: TRANSFER TO SNF/ECF
--- NOTE | 2022-03-14 13:52 | P.PN ---
Subjective Progress Note Date: 03/14/22 This is a pleasant 76-year-old male who was recently admitted under orthopedic service for left hip fracture and is a resident at [facility] and we were consulted for medical management regarding diabetes mellitus and other medical issues. Patient does follow with Dr. Deena Will in the outpatient setting and was found to have a periprosthetic fracture on the left and orthopedics are recommending conservative management at this time. Patient is to return to EC and at the bedside with questions and concerns answered. Recommend to continue with the patient on DVT prophylaxis of heparin subcu to 12 hours for the next 2 weeks. Patient is afebrile and denies any chest pain or s hortness of breath. Review of systems: Unable to obtain as patient has severe dementia All medications have been reviewed PHYSICAL EXAMINATION: GENERAL: The patient is awake, Well developed, well nourished. HEENT: Pupils are round and equally reacting to light. EOMI. no scleral icterus. No conjunctival pallor. Normocephalic, atraumatic. No pharyngeal erythema. No thyromegaly. CARDIOVASCULAR: S1 and S2 muffled PULMONARY: diminished breath sounds bilaterally with no wheezing or rhonchi noted. ABDOMEN: soft. Nontender on exam. obese. non-distended, normoactive bowel sounds. No palpable organomegaly. MUSCULOSKELETAL: No joint swelling or deformity. EXTREMITIES: No cyanosis, clubbing, or pedal edema. Pain noted on palpation of the left hip NEUROLOGICAL: Gross neurological examination did not reveal any focal deficits. Diffuse weakness SKIN: No rashes. Assessment: Status post left hip periprosthetic fracture Diabetes mellitus type 2 Hypertension Hyperlipidemia Severe dementia GI prophylaxis DVT prophylaxis Full code Plan: Recommend to continue with current medications and management per orthopedic services. Orthopedics recommending conservative management of the left fracture and will follow-up in the outpatient setting in the next 2-3 weeks. Recommend continuing heparin subcu every 12 hours for DVT prophylaxis for at least the next 2 weeks until reevaluated by orthopedics. Prescription was provided. Recommend to resume other home medications and continue with physical therapy at the [facility]CF. is at the bedside with questions and concerns answered. Due to multiple complex medical issues, prognosis is guarded. Will continue to follow along with orthopedics during hospitalization and would also like to thank you for this consultation. Patient is being discharged to ECF today. The impression and plan of care has been dictated by Lexi Roland, nurse practitioner as directed. MD Juana I have performed a history and examination and MDM of this patient, discussed the same with the dictator, and agree with the dictator's assessment and plan as written ,documented as a scribe. Based on total visit time, I have performed more than 50% of the visit. Any additional findings or plans will be noted. Objective - Vital Signs Vital signs: Vital Signs Temp 97.9 F 03/14/22 05:48 Pulse 58 L 03/14/22 05:48 Resp 16 03/14/22 05:48 BP 112/54 03/14/22 05:48 Pulse Ox 92 L 03/14/22 05:48 FiO2 Intake & Output 03/13/22 03/14/22 03/14/22 18:59 06:59 18:59 Intake Total 900 Balance 900 Intake: Intake, IV Titration 900 Amount Sodium Chloride 0.9% 1, 900 000 ml @ 75 mls/hr IV . [id number] [facility] Rx#:[id number] Other: Voiding Method Diaper Diaper Diaper # Voids 1 2 - Labs CBC & Chem 7: 03/12/22 22:40 03/12/22 22:40 Labs: Abnormal Lab Results - Last 24 Hours (Table) 03/13/22 Range/Units 17:17 POC Glucose (mg/dL) 118 H (75-99) mg/dL
== END 2022-03-14 11:39 | DRG 559 ==
LOC: EC 20:34 → 5NMEDONC 22:22
PROVIDERS: ADMIT Orthopaedic Surgery; ATTEND Orthopaedic Surgery
DX: M97.02XA Periprosthetic fracture around internal prosthetic left hip joint, initial encounter (principal); S72.112A Displaced fracture of greater trochanter of left femur, initial encounter for closed fracture; E11.9 Type 2 diabetes mellitus without complications; N40.0 Benign prostatic hyperplasia without lower urinary tract symptoms; R55 Syncope and collapse; N21.0 Calculus in bladder; E78.5 Hyperlipidemia, unspecified; F03.90 Unspecified dementia, unspecified severity, without behavioral disturbance, psychotic disturbance, mood disturbance, and anxiety; I10 Essential (primary) hypertension; W19.XXXA Unspecified fall, initial encounter; Z79.84 Long term (current) use of oral hypoglycemic drugs; Z79.899 Other long term (current) drug therapy; Z80.0 Family history of malignant neoplasm of digestive organs; Z82.0 Family history of epilepsy and other diseases of the nervous system; Z87.19 Personal history of other diseases of the digestive system; Z86.010 Personal history of colon polyps
CPT/HCPCS: 71045; 72192; 80053; 85025; 85610; 85730; 86850; 86900; 86901; 93005; 96374; 96375; 99285

== ENCOUNTER 2023-05-16 20:34 | Inpatient (IN) | payer MEDICARE, OTHER ==
[2023-05-16] MEDS ORDERED: MORPHINE SULFATE 4 MG/ML SYRINGE IVP STA (21:36)
[2023-05-16 21:59] LABS: Basophils # (A) 0.1 k/uL (0-0.2); Basophils % (A) 1 %; Eosinophils # (A) 0.8 k/uL (0-0.7); Eosinophils % (A) 6 %; HCT 48.6 % (39.0-53.0); Lymphocytes # (A) 1.9 k/uL (1.0-4.8); Lymphocytes % (A) 14 %; MCH 29.9 pg (25.0-35.0); MCHC 32.9 g/dL (31.0-37.0); MCV 90.8 fL (80.0-100.0); Mean Platelet Volume 9.8; Monocytes # (A) 0.6 k/uL (0-1.0); Monocytes % (A) 4 %; Neutrophils # (A) 9.7 k/uL (1.3-7.7); Neutrophils % (A) 74 %; Platelet Count 150 k/uL (150-450); RBC 5.35 m/uL (4.30-5.90); RDW 14.1 % (11.5-15.5); WBC 13.2 k/uL (3.8-10.6)
[2023-05-16 22:30] LABS: ALT 19 U/L (4-49); AST 26 U/L (17-59); African American GFR (CKD) 49 (>60 ml/min/1.73 sqM); Albumin 3.8 g/dL (3.5-5.0); Alkaline Phosphatase 92 U/L (38-126); Anion Gap 8 mmol/L; Blood Urea Nitrogen 29 mg/dL (9-20); Carbon Dioxide 28 mmol/L (22-30); Chloride 110 mmol/L (98-107); Glucose 102 mg/dL (74-99); Non-African American GFR(CKD) 43 (>60 ml/min/1.73 sqM); Sodium 146 mmol/L (137-145); Total Bilirubin 0.5 mg/dL (0.2-1.3); Total Protein 6.9 g/dL (6.3-8.2)
--- NOTE | 2023-05-16 22:41 | CT ---
EXAMINATION TYPE: CT brain elizabeth sullivan con DATE OF EXAM: 05/16/2023 COMPARISON: None HISTORY: fall CT DLP: 1460.8 mGycm, Automated exposure control for dose reduction was used. CONTRAST: Patient injected with mL of . CT of the brain is performed utilizing 3 mm thick sections through the posterior fossa and 3 mm thick sections through the remaining calvarium. Study is performed within 24 hours of arrival to the hospital. No abnormal hyperdensity is present to suggest an acute intracranial hemorrhage. No mass lesion is evident. No acute infarcts are evident. Mild periventricular white matter hypodensity is present, likely on t he basis of chronic white matter ischemic changes. Ventricles and sulci are prominent for the patient age. Paranasal sinuses and mastoid air cells within the [id number] are clear. IMPRESSIONS: 1. Atrophy with chronic appearing. Ventricular white matter ischemic changes. CT cervical spine. COMPARISON: None CT of the cervical spine is performed in the axial plane at 2 mm thick sections. Reconstructed image s in the coronal, and sagittal plane are reviewed on the computer. No acute fractures are evident. C6-7 disc space narrowing is present. Anterior vertebral by spurring is present C4-C6. There is a gra de 1 spondylolisthesis of C4 anteriorly on C5 and C5 anterior on C6. Vertebral body heights are prese rved. No spinal canal stenosis is evident. Some uncovertebral joint hypertrophy is present on the right at C4-5 with mild foraminal narrowing. B ilateral moderate foraminal stenosis from uncovertebral joint hypertrophy and facet hypertrophy is pr esent C5-6 IMPRESSIONS: 1. Degenerative disc changes C6-7. 2. Grade 1 spondylolisthesis of C4 anteriorly on C5 and C5 anteriorly on C6
--- NOTE | 2023-05-16 22:43 | XR ---
EXAMINATION TYPE: XR chest 1V DATE OF EXAM: 05/16/2023 COMPARISON: 03/12/2022 HISTORY: Fall, pain TECHNIQUE: Supine chest FINDINGS: Heart size is normal. Pulmonary vasculature is normal. No suspicious focal consolidation is evident. No pneumothorax is evident. No displaced rib fractures are identified IMPRESSION: 1. No acute pulmonary process
--- NOTE | 2023-05-16 22:45 | XR ---
EXAMINATION TYPE: XR Hip RT and AP Pelvis DATE OF EXAM: 05/16/2023 COMPARISON: None HISTORY: Fall, pain TECHNIQUE: AP pelvis, 2 view right hip FINDINGS: Femoral head articulates with the acetabulum. Cam deformity is evident. There is an avulsion of the lesser trochanter. Intertrochanteric fracture is suspected. CT can be per formed for confirmation and additional evaluation as clinically indicated. IMPRESSION: 1. Suspected intertrochanteric fracture and avulsion of the lesser trochanter right hip.
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
[2023-05-16] MEDS ORDERED: HYDROcodone/APAP 5-325MG 1 EACH TAB PO PRN (23:42)
[2023-05-16] MEDS ORDERED: NALOXONE 0.4 MG/ML 1 ML VIAL IV PRN (23:42)
[2023-05-16] MEDS ORDERED: ACETAMINOPHEN TAB 325 MG TAB PO PRN (23:42)
[2023-05-17] MEDS: MORPHINE SULFATE 4 MG/ML SYRINGE IV PRN ×3 (00:11→21:14)
[2023-05-17] MEDS: SODIUM CHLORIDE 0.9% 1,000 ML IV SCH ×2 (00:12→13:06)
[2023-05-17 06:43] LABS: Basophils % (A) 0 %; Eosinophils # (A) 0.2 k/uL (0-0.7); Eosinophils % (A) 2 %; HCT 35.4 % (39.0-53.0); Lymphocytes # (A) 1.8 k/uL (1.0-4.8); Lymphocytes % (A) 20 %; MCH 30.4 pg (25.0-35.0); MCHC 33.3 g/dL (31.0-37.0); MCV 91.3 fL (80.0-100.0); Mean Platelet Volume 9.8; Monocytes # (A) 0.6 k/uL (0-1.0); Monocytes % (A) 7 %; Neutrophils # (A) 6.6 k/uL (1.3-7.7); Neutrophils % (A) 71 %; Platelet Count 178 k/uL (150-450); RBC 3.88 m/uL (4.30-5.90); WBC 9.4 k/uL (3.8-10.6)
[2023-05-17 06:46] LABS: HGB 11.8 gm/dL (13.0-17.5)
[2023-05-17 06:59] LABS: African American GFR (CKD) 69 (>60 ml/min/1.73 sqM); Anion Gap 6 mmol/L; Blood Urea Nitrogen 26 mg/dL (9-20); Calcium 9.1 mg/dL (8.4-10.2); Carbon Dioxide 27 mmol/L (22-30); Chloride 112 mmol/L (98-107); Glucose 106 mg/dL (74-99); Non-African American GFR(CKD) 59 (>60 ml/min/1.73 sqM); Potassium 4.8 mmol/L (3.5-5.1); Sodium 145 mmol/L (137-145)
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
[2023-05-17] MEDS ORDERED: polyethylene glycoL 3350 17 GM POWD.PACK PO PRN (08:22)
--- NOTE | 2023-05-17 10:49 | P.PN ---
Progress Note - Text Progress Note Date: 05/17/23 The patient was seen and examined personally by me early this morning and was also seen expediently by internal medicine and cleared for surgery. We had planned on performing surgery this morning to help facilitate early mobilization of the patient. Unfortunately we are unable to be go to the operating room today as a spine surgeon who is not allied health professional is utilizing on-call resources to perform a lengthy spine procedure. We will plan on surgery tomorrow morning.
[2023-05-17] MEDS ORDERED: DEXTROSE 50% SYRINGE 50 ML IVP PRN ×2 (11:44)
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
[2023-05-17 12:09] LABS: Glucose,Whole Blood 93 mg/dL (70-110)
[2023-05-17] MEDS: INSULIN ASPART (NovoLOG) 100 UNIT/ML VIAL SQ SCH ×3 (13:06→21:10)
[2023-05-17] MEDS: DIVALPROEX SPRINKLE 125 MG CAP.SPRINK PO SCH (15:59)
[2023-05-17] MEDS: MEMANTINE 10 MG TAB PO SCH (15:59)
[2023-05-17 16:37] LABS: Glucose,Whole Blood 131 mg/dL (70-110)
[2023-05-17] MEDS ORDERED: LOSARTAN 25 MG TAB PO SCH (20:00)
[2023-05-17 20:48] LABS: Glucose,Whole Blood 122 mg/dL (70-110)
[2023-05-17] MEDS: ATORVASTATIN 20 MG TAB PO SCH (21:13)
[2023-05-17] MEDS: FOLIC ACID 1 MG TAB PO SCH (21:13)
[2023-05-18] MEDS: SODIUM CHLORIDE 0.9% 1,000 ML IV SCH ×2 (01:19→15:19)
[2023-05-18 05:00] LABS: African American GFR (CKD) 88 (>60 ml/min/1.73 sqM); Anion Gap 8 mmol/L; Blood Urea Nitrogen 20 mg/dL (9-20); Calcium 8.8 mg/dL (8.4-10.2); Carbon Dioxide 23 mmol/L (22-30); Chloride 110 mmol/L (98-107); Glucose 115 mg/dL (74-99); Non-African American GFR(CKD) 76 (>60 ml/min/1.73 sqM); Potassium 4.4 mmol/L (3.5-5.1); Sodium 141 mmol/L (137-145)
[2023-05-18] MEDS: MORPHINE SULFATE 4 MG/ML SYRINGE IV PRN (05:17)
[2023-05-18 05:23] LABS: Basophils % (A) 0 %; Eosinophils # (A) 0.3 k/uL (0-0.7); Eosinophils % (A) 3 %; HCT 35.9 % (39.0-53.0); HGB 11.7 gm/dL (13.0-17.5); Hypochromasia Slight; Lymphocytes # (A) 1.8 k/uL (1.0-4.8); Lymphocytes % (A) 19 %; MCH 30.2 pg (25.0-35.0); MCHC 32.7 g/dL (31.0-37.0); MCV 92.4 fL (80.0-100.0); Mean Platelet Volume 9.5; Monocytes # (A) 0.7 k/uL (0-1.0); Monocytes % (A) 7 %; Neutrophils # (A) 6.5 k/uL (1.3-7.7); Neutrophils % (A) 69 %; Platelet Count 173 k/uL (150-450); RBC 3.88 m/uL (4.30-5.90); RDW 13.8 % (11.5-15.5); WBC 9.5 k/uL (3.8-10.6)
[2023-05-18 05:59] LABS: Glucose,Whole Blood 124 mg/dL (70-110)
[2023-05-18] MEDS: NON FORMULARY DRUG (Brexpiprazole [Rexulti] 1 MG Tablet) PO SCH (06:09)
[2023-05-18] MEDS: MEMANTINE 10 MG TAB PO SCH ×2 (06:10→15:19)
[2023-05-18] MEDS: CYANOCOBALAMIN 500 MCG TAB PO SCH (06:10)
[2023-05-18] MEDS: CHOLESTYRAMINE (WITH SUGAR) 4 GM PACKET PO SCH (06:10)
[2023-05-18] MEDS: DIVALPROEX SPRINKLE 125 MG CAP.SPRINK PO SCH ×2 (06:10→15:19)
[2023-05-18] MEDS: INSULIN ASPART (NovoLOG) 100 UNIT/ML VIAL SQ SCH ×4 (06:11→21:08)
[2023-05-18] MEDS ORDERED: TRANEXAMIC ACID 1,000 MG in SODIUM CHLORIDE 0.9% 100 ML IVPB ONE ×4 (07:47)
[2023-05-18 08:58] LABS: Partial Thromboplastin Time 24.4 sec (22.0-30.0); Prothrombin Time 10.6 sec (9.0-12.0)
[2023-05-18] MEDS ORDERED: IV FLUID CONTINUATION 1,000 ML IV ONE (09:52)
[2023-05-18 11:30] LABS: Glucose,Whole Blood 104 mg/dL (70-110)
[2023-05-18] MEDS ORDERED: KETAMINE 10 MG/ML 20 ML VIAL ONE (11:36)
[2023-05-18] MEDS ORDERED: PHENYLEPHRINE-0.9% NACL SYG 1,000 MCG/10 ML SYRINGE ONE (11:36)
[2023-05-18] MEDS ORDERED: GLYCOPYRROLATE 0.2 MG/ML 2 ML VIAL ONE (11:36)
[2023-05-18] MEDS ORDERED: TRANEXAMIC 1,000 MG/100ML-NACL PREMIX BAG ONE (11:36)
[2023-05-18] MEDS ORDERED: MIDAZOLAM 2 MG/2 ML VIAL ONE (11:36)
--- NOTE | 2023-05-18 12:53 | P.OP ---
Date of Procedure: 05/18/23 Preoperative Diagnosis: 1. Right 2 part intertrochanteric hip fracture 2. Advanced dementia Postoperative Diagnosis: Same Procedure(s) Performed: Operative fixation of right intertrochanteric hip fracture with short intramedullary hip screw Implants: [place] gamma nail short 11 mm diameter, 105 mm lag screw, 42.5 mm distal interlocking screw Anesthesia: spinal Surgeon: Festus Ruiz Business Applications Analyst #1: Dary Gandhi Estimated Blood Loss (ml): 50 IV fluids (ml): 700 Pathology: none sent Condition: stable Disposition: PACU Indications for Procedure: I met with the patient and their family preoperatively to discuss their injury and treatment options. They have an extra-capsular, intertrochanteric hip fracture and my recommendation was to stabilize the fracture with an intramedullary hip screw to facilitate early mobilization. We discussed the potential risks and complications of this surgical procedure including but certainly not limited to risks from anesthesia, superficial infection, deep infection, fracture nonunion, fracture malunion, hardware failure including broken hardware, varus collapse with lag screw cut out of the femoral head, progression of hip arthritis, limb length discrepancy, symptomatic hardware, need for further surgery including hardware removal and conversion to arthroplasty, DVT, PE, acute coronary event, pressure ulcers, urinary tract infection, failure to thrive, an inability to regain preinjury level of function, and possibly . The patient and their family understand these potential complications and also awknowledge that other less common comp lications are possible. They provided both their verbal and written consent to go forward with operative fixation of their hip fracture with an intramedullary hip screw. Description of Procedure: The patient was identified in preoperative holding and the correct operative extremity was marked with my initials. I reviewed the consent form with the patient and their family and all of their questions were answered. The patient was then brought back to the operating room by anesthesia. Anesthesia, preoperative antibiotics, and tranexamic acid were given by the anesthesia team while on the rwells. Both ankles were padded with webril and boots for the [place] table were applied. The patient was then carefully transferred onto the [place] table. A perineal post was immediately placed. The contralateral arm was secured on a well-padded arm ovalles. The ipsilateral arm was draped across the chest and secured with a pillow, foam, and paper tape to allow access to the proximal femur. Nonsterile drapes were applied to the operative extremity. The height of the table was elevated and the contralateral extremity was dropped towards the floor to facilitate imaging. A timeout was performed identifying the correct patient, operative extremity, and procedure. Fluoroscopy was brought in to assess the fracture. A provisional reduction was performed using longitudinal traction, adduction, and internal rotation. An AP and lateral view were obtained to assess the reduction. The operative extremity was then prepped and draped in the standard sterile fashion. A straight incision was made at the tip of the greater trochanter and extended proximally for 3 cm. Skin and subcutaneous tissues were incised sharply. The underlying fascia was incised in line with the skin incision. An awl was placed just medial to the tip of the greater trochanter on the AP view and colinear with the canal on the lateral view. A 3.2 mm guide pin was then advanced into the proximal femur. The position of the guidepin was verified with fluoroscopy. An opening reamer and soft tissue cannula were placed over the guidepin and used to open the proximal femur to the level of the lesser trochanter. The 3.2 mm guide pin and opening reamer were removed. A short gamma nail was dispensed, hooked up to the targeting arm and I verified that the trochar through the targeting arm lined up with the slots on the nail. The nail was then impacted into the proximal femur until the appropriate depth had been reached. A small stab incision was made over the lateral aspect of the femur using the targeting arm as a reference for the lag screw. Incision was carried down to the skin and fascia down to the lateral cortex of the femur. The trocar was then placed up to the lateral cortex of the femur and a guidepin was placed in the low center position on the AP view and centered in the femoral head on the lateral view. Once the position of the guidewire was verified, we reamed to appropriate depth and placed a lag screw over the guidewire and into the femoral head. The position of the lag screw was assessed with fluoroscopy. The guidewire was then removed from the femoral head. The set screw was placed proximally, brought fully down and then released a quarter turn to allow compression. A final stab incision was made over the lateral femur at the site of the distal interlocking screw, again using the targeting arm as a reference. The trocar and sleeve were placed to the lateral cortex of the femur. We then drilled and placed a distal interlocking screw. Final fluoroscopic images were taken showing excellent reduction of the fracture and appropriate position of the implants. All wounds were thoroughly irrigated and closed in layers. Sterile dressings were applied. The drapes were taken down, the patient was transferred off the [place] table, and was brought to recovery having tolerated the procedure well. Dary Gandhi PA-C was required as a skilled marketing administrative assistant for patient positioning, retraction, placement of implants, closure of wounds, and application of dressings. PLAN: The patient can weight-bear as tolerated on their operative extremity. 2 doses of postoperative antibiotics. DVT prophylaxis with aspirin 81 mg twice a day starting the day of surgery. Dressing change on postoperative day #2. Appreciate Internal Medical assistance with perioperative medical management. Discharge planning in process.
[2023-05-18] MEDS ORDERED: ONDANSETRON 4 MG/2 ML VIAL IVP PRN (13:03)
[2023-05-18] MEDS ORDERED: HYDROmorphone 0.5 MG/0.5 ML SYRINGE IVP PRN (13:03)
[2023-05-18] MEDS ORDERED: NOREPINEPHRINE 4 MG in SODIUM CHLORIDE 0.9% 250 ML IV ONE ×4 (13:15)
[2023-05-18 13:50] LABS: Glucose,Whole Blood 98 mg/dL (70-110)
--- NOTE | 2023-05-18 14:03 | P.PN ---
Subjective Progress Note Date: 05/18/23 Patient is a 77-year-old male with hypertension, dyslipidemia, diabetes, and dementia who presented after a fall with right hip fracture. Patient is at a retirement facility and often understands the hallway. Has no history of stroke, CHF, chronic kidney disease. Patient underwent operative fixation of his right two-part intertrochanteric fracture with IM nailing on 05/18/23. During the procedure he had some hypotension requiring multiple doses of [place]- Synephrine. In the PACU he continued to have hypotension necessitating [place]- Synephrine and then finally levophed drip. Patient seen and examined at bedside in the PACU with FISHING LURE ASSEMBLER present. Patient is being started on levo. He is lethargic but opens his eyes to touch. He does not answer questions but appears comfortable. Vital signs reviewed General: nontoxic, mod distress, appears at stated age Cardiovascular: S1S2 reg, no murmur, positive posterior tibial pulse bilateral, Lungs: Decreased bs bilateral, no rhonchi, no rales , no accessory muscle use Abdominal: soft, nontender to palpation, no guarding, no appreciable organomegaly Ext: no gross muscle atrophy, no edema b/l lower extremities, no contractures Neuro: CN II-XI grossly intact, Moving all 4 extremities independently. Psych: Lethargic, opens eyes to touch Assessment/ Plan: 77 yo M with Right IT fracture s/p IM nailing Post-op hypotesion Hx of HTN HLD - Likely related to spinal anesthesia - check EKG, troponin, and ABG, CBC and CMP - Conitnue with levophed gtt - Case discussed with Dr. Jacinto who has accepted the patient to the ICU - Dr. Goetz updated on patient condition - Case discussed with CRN, had some juan-op hypotension. - Hold cozaar - lipitor 40 mg HS, questran 4 mg PO daily DM 2 - Metformin on hold - SSI - Follow BS - A1C 6.3 Dementia with hx of behavioral disturbances - once more awake can resume Ruxulti - conitnue with Depakote, Namenda - Safe and supportive environment Imaging: None new for review. Data Review: Vital reviewed at bedside and BP 97/47 on 0.08 mcg/kg/min of levophed, O2 Sat 100% on simple facemask, Labs from the screening review hemoglobin 11.7, chloride 110 BG- 98 Sinus bradycardia at a rate of [address]-T wave changes, dignificant baseline irregularities, QRS 88, SD 178, QTC 444 A total of 45 minutes of critical care time was spent in the care of this complex patient. This dictation was prepared using [employer] voice recognition software. Though every attempt is made to correct errors during dictation some may still exist. Objective - Vital Signs Vital signs: Vital Signs Temp 97.0 F L 05/18/23 12:59 Pulse 68 05/18/23 12:59 Resp 16 05/18/23 12:59 BP 58/42 05/18/23 12:59 Pulse Ox 98 05/18/23 12:59 FiO2 Intake & Output 05/17/23 05/18/23 05/18/23 18:59 06:59 18:59 Intake Total 750 Output Total 25 Balance 725 Intake: IV 750 Output: Estimated Blood Loss 25 Other: # Voids 3 2 - Labs CBC & Chem 7: 05/18/23 04:07 05/18/23 04:07 Labs: Abnormal Lab Results - Last 24 Hours (Table) 05/16/23 05/17/23 05/17/23 Range/Units 21:50 16:34 20:47 RBC (4.30-5.90) m/uL Hgb (13.0-17.5) gm/dL Hct (39.0-53.0) % Chloride (98-107) mmol/L Glucose (74-99) mg/dL POC Glucose (mg/dL) 131 H 122 H (70-110) mg/dL Hemoglobin A1c 6.3 H (<=6.0) % 05/18/23 05/18/23 05/18/23 Range/Units 04:07 04:07 05:58 RBC 3.88 L (4.30-5.90) m/uL Hgb 11.7 L (13.0-17.5) gm/dL Hct 35.9 L (39.0-53.0) % Chloride 110 H (98-107) mmol/L Glucose 115 H (74-99) mg/dL POC Glucose (mg/dL) 124 H (70-110) mg/dL Hemoglobin A1c (<=6.0) %
[2023-05-18 14:05] LABS: ABG HCO3 23 mmol/L (21-25); ABG Oxygen Saturation 97.1 % (94-97); ABG PCO2 39 mmHg (35-45); ABG PH 7.38 (7.35-7.45); ABG PO2 87 mmHg (83-108); ABG TCO2 24 mmol/L (19-24); Allen Test Performed? Yes
[2023-05-18] MEDS ORDERED: SODIUM CHLORIDE 0.9% 1,000 ML IV ONE ×2 (14:05→15:02)
--- NOTE | 2023-05-18 14:10 | FL ---
Fluoroscopy INDICATION: Pain FINDINGS: Fluoroscopy time: 1 minute 20 seconds. Total dose area product (DAP) in uGy*m?, mGy*cm? (or similar): 5.1 Images obtained: 6. IMPRESSIONS: 1. Documentation of fluoroscopy.
[2023-05-18 14:28] LABS: Glucose,Whole Blood 116 mg/dL (70-110)
[2023-05-18] MEDS ORDERED: NOREPINEPHRINE 4 MG in SODIUM CHLORIDE 0.9% 250 ML IV SCH (15:15)
[2023-05-18 15:34] LABS: ALT 19 U/L (4-49); AST 24 U/L (17-59); African American GFR (CKD) 80 (>60 ml/min/1.73 sqM); Albumin 3.4 g/dL (3.5-5.0); Albumin/Globulin Ratio 1.1; Alkaline Phosphatase 79 U/L (38-126); Anion Gap 12 mmol/L; Blood Urea Nitrogen 19 mg/dL (9-20); Calcium 8.7 mg/dL (8.4-10.2); Carbon Dioxide 22 mmol/L (22-30); Chloride 110 mmol/L (98-107); Globulin 3.2 g/dL; Glucose 139 mg/dL (74-99); Magnesium 1.5 mg/dL (1.6-2.3); Non-African American GFR(CKD) 69 (>60 ml/min/1.73 sqM); Phosphorus 3.5 mg/dL (2.5-4.5); Potassium 5.3 mmol/L (3.5-5.1); Sodium 144 mmol/L (137-145); Total Bilirubin 0.9 mg/dL (0.2-1.3); Total Protein 6.6 g/dL (6.3-8.2)
[2023-05-18 15:55] LABS: Basophils # (A) 0.1 k/uL (0-0.2); Basophils % (A) 0 %; Eosinophils # (A) 0.3 k/uL (0-0.7); Eosinophils % (A) 2 %; HCT 35.8 % (39.0-53.0); HGB 11.5 gm/dL (13.0-17.5); Hypochromasia Slight; Lymphocytes # (A) 1.9 k/uL (1.0-4.8); Lymphocytes % (A) 13 %; MCHC 32.2 g/dL (31.0-37.0); MCV 93.1 fL (80.0-100.0); Mean Platelet Volume 10.4; Monocytes # (A) 0.9 k/uL (0-1.0); Monocytes % (A) 6 %; Neutrophils # (A) 11.4 k/uL (1.3-7.7); Neutrophils % (A) 78 %; Platelet Count 224 k/uL (150-450); RBC 3.85 m/uL (4.30-5.90); RDW 13.8 % (11.5-15.5); WBC 14.7 k/uL (3.8-10.6)
[2023-05-18] MEDS ORDERED: Magnesium Replacement Protocol 1 EACH MISC MISCELLANE PRN (16:29)
[2023-05-18] MEDS ORDERED: Potassium Replacement Protocol 1 EACH MISC MISCELLANE PRN (16:29)
[2023-05-18] MEDS: MAGNESIUM SULFATE-D5W PMX 1 GM in DEXTROSE/WATER 1 100ML.BAG IVPB SCH ×2 (16:37→16:38)
[2023-05-18] MEDS: HYDROmorphone 0.5 MG/0.5 ML SYRINGE IVP PRN ×3 (16:53→23:41)
[2023-05-18] MEDS: FOLIC ACID 1 MG TAB PO SCH (21:07)
[2023-05-18 21:08] LABS: Glucose,Whole Blood 117 mg/dL (70-110)
[2023-05-18] MEDS: SENNOSIDES-DOCUSATE SODIUM 1 EACH TAB PO SCH (21:08)
[2023-05-18] MEDS: ATORVASTATIN 20 MG TAB PO SCH (21:08)
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
[2023-05-19] MEDS: HYDROmorphone 0.5 MG/0.5 ML SYRINGE IVP PRN ×3 (03:39→14:17)
[2023-05-19] MEDS: SODIUM CHLORIDE 0.9% 1,000 ML IV SCH ×2 (03:54→22:47)
[2023-05-19 04:05] LABS: Basophils % (A) 0 %; Eosinophils # (A) 0.2 k/uL (0-0.7); Eosinophils % (A) 2 %; HCT 32.4 % (39.0-53.0); HGB 10.5 gm/dL (13.0-17.5); Lymphocytes # (A) 1.5 k/uL (1.0-4.8); Lymphocytes % (A) 17 %; MCH 29.4 pg (25.0-35.0); MCHC 32.6 g/dL (31.0-37.0); MCV 90.3 fL (80.0-100.0); Mean Platelet Volume 9.5; Monocytes # (A) 0.6 k/uL (0-1.0); Monocytes % (A) 7 %; Neutrophils # (A) 6.6 k/uL (1.3-7.7); Neutrophils % (A) 73 %; Platelet Count 159 k/uL (150-450); RBC 3.59 m/uL (4.30-5.90); RDW 13.6 % (11.5-15.5); WBC 9.1 k/uL (3.8-10.6)
[2023-05-19 04:10] LABS: African American GFR (CKD) 84 (>60 ml/min/1.73 sqM); Anion Gap 8 mmol/L; Blood Urea Nitrogen 15 mg/dL (9-20); Calcium 8.3 mg/dL (8.4-10.2); Carbon Dioxide 24 mmol/L (22-30); Chloride 109 mmol/L (98-107); Glucose 106 mg/dL (74-99); Magnesium 1.9 mg/dL (1.6-2.3); Non-African American GFR(CKD) 73 (>60 ml/min/1.73 sqM); Potassium 4.7 mmol/L (3.5-5.1); Sodium 141 mmol/L (137-145)
[2023-05-19] MEDS ORDERED: MAGNESIUM SULFATE-D5W PMX 1 GM in DEXTROSE/WATER 1 100ML.BAG IVPB ONE (04:53)
[2023-05-19] MEDS ORDERED: Magnesium Replacement Protocol 1 EACH MISC MISCELLANE PRN ×2 (04:53→20:09)
[2023-05-19 06:15] LABS: Glucose,Whole Blood 107 mg/dL (70-110)
[2023-05-19] MEDS: INSULIN ASPART (NovoLOG) 100 UNIT/ML VIAL SQ SCH ×4 (06:15→22:16)
[2023-05-19] MEDS: NON FORMULARY DRUG (Brexpiprazole [Rexulti] 1 MG Tablet) PO SCH (06:15)
[2023-05-19] MEDS: CYANOCOBALAMIN 500 MCG TAB PO SCH (06:15)
[2023-05-19] MEDS: CHOLESTYRAMINE (WITH SUGAR) 4 GM PACKET PO SCH (06:15)
[2023-05-19] MEDS: MEMANTINE 10 MG TAB PO SCH ×2 (06:15→16:43)
[2023-05-19] MEDS: DIVALPROEX SPRINKLE 125 MG CAP.SPRINK PO SCH ×2 (06:15→16:43)
--- NOTE | 2023-05-19 09:36 | P.PN ---
Subjective Progress Note Date: 05/19/23 This patient is a 77- year old male who is status-post operative fixation of right intertrochanteric hip fracture with short intramedullary hip screw on 05/18/23. Today is post-operative day #1. Patient is examined bedside in the ICU this morning with Dr. Ruiz. He is confused, a bedside sitter is present. Patient was transferred to the ICU post-op for post-op hypotension, which improved with fluid resuscitation. Vasopressors currently on hold. Per nursing, he should be transferred out of the ICU to the medical floor this afternoon. Objective - Vital Signs Vital signs: Vital Signs Temp 98.5 F 05/19/23 08:00 Pulse 63 05/19/23 06:00 Resp 15 05/19/23 08:00 BP 109/73 05/19/23 08:00 Pulse Ox 94 L 05/19/23 08:00 FiO2 Intake & Output 05/18/23 05/19/23 05/19/23 18:59 06:59 18:59 Intake Total 2125 825 Output Total 360 450 Balance 1765 375 Intake: IV 1050 825 Sodium Chloride 0.9% 1, 825 000 ml @ 75 mls/hr IV . [id number] [facility] Rx#:[id number] Intake, IV Titration 1075 Amount Sodium Chloride 0.9% 1, 1000 000 ml @ 0 mls/hr IV .[facility] Rx#:[id number] Sodium Chloride 0.9% 1, 75 000 ml @ 75 mls/hr IV . [id number] [facility] Rx#:[id number] Output: Urine 335 450 Estimated Blood Loss 25 Other: Voiding Method Indwelling Catheter Indwelling Catheter - Exam On examination, patient is sitting up in bed in no apparent distress. He is confused. On inspection of the right hip, there are clean, dry, intact surgical dressings in place. No bleeding or drainage through the dressing. Mild swelling of the thigh, thigh is soft and compressible. Motor and sensory function intact RLE. RLE warm and well perfused. Calf nontender. - Labs CBC & Chem 7: 05/19/23 03:25 05/19/23 03:25 Labs: Abnormal Lab Results - Last 24 Hours (Table) 05/18/23 05/18/23 05/18/23 Range/Units 14:03 14:27 14:48 WBC 14.7 H (3.8-10.6) k/uL RBC 3.85 L (4.30-5.90) m/uL Hgb 11.5 L (13.0-17.5) gm/dL Hct 35.8 L (39.0-53.0) % Neutrophils # 11.4 H (1.3-7.7) k/uL ABG O2 Saturation 97.1 H (94-97) % Potassium (3.5-5.1) mmol/L Chloride (98-107) mmol/L Glucose (74-99) mg/dL POC Glucose (mg/dL) 116 H (70-110) mg/dL Calcium (8.4-10.2) mg/dL Magnesium (1.6-2.3) mg/dL Albumin (3.5-5.0) g/dL 05/18/23 05/18/23 05/19/23 Range/Units 14:48 21:06 03:25 WBC (3.8-10.6) k/uL RBC (4.30-5.90) m/uL Hgb (13.0-17.5) gm/dL Hct (39.0-53.0) % Neutrophils # (1.3-7.7) k/uL ABG O2 Saturation (94-97) % Potassium 5.3 H (3.5-5.1) mmol/L Chloride 110 H 109 H (98-107) mmol/L Glucose 139 H 106 H (74-99) mg/dL POC Glucose (mg/dL) 117 H (70-110) mg/dL Calcium 8.3 L (8.4-10.2) mg/dL Magnesium 1.5 L (1.6-2.3) mg/dL Albumin 3.4 L (3.5-5.0) g/dL 05/19/23 Range/Units 03:25 WBC (3.8-10.6) k/uL RBC 3.59 L (4.30-5.90) m/uL Hgb 10.5 L (13.0-17.5) gm/dL Hct 32.4 L (39.0-53.0) % Neutrophils # (1.3-7.7) k/uL ABG O2 Saturation (94-97) % Potassium (3.5-5.1) mmol/L Chloride (98-107) mmol/L Glucose (74-99) mg/dL POC Glucose (mg/dL) (70-110) mg/dL Calcium (8.4-10.2) mg/dL Magnesium (1.6-2.3) mg/dL Albumin (3.5-5.0) g/dL Assessment and Plan Assessment: Status-post operative fixation of right intertrochanteric hip fracture with short intramedullary hip screw on 05/18/23. Post-op day #1. Plan: - Patient may weight bear to tolerance on operative extremity with a walker. Up with assistance, up with a walker. - Physical therapy consulted for mobilization. - Keep operative dressing in place. - Pain medications as needed. - Aspirin 81mg BID for DVT prophylaxis. - Medical management per internal medicine, pulmonology. - Per nursing, patient should be transferred out of the ICU this afternoon. Case management consulted for discharge planning.
[2023-05-19] MEDS ORDERED: HALOPERIDOL LACTATE 5 MG/ML 1 ML VIAL IM STA (11:16)
--- NOTE | 2023-05-19 14:43 | P.PN ---
Subjective Progress Note Date: 05/19/23 Patient is a 77-year-old male with hypertension, dyslipidemia, diabetes, and dementia who presented after a fall with right hip fracture. Patient is at a residential facility and often understands the hallway. Has no history of stroke, CHF, chronic kidney disease. Patient underwent operative fixation of his right two-part intertrochanteric fracture with IM nailing on 05/18/23. During the procedure he had some hypotension requiring multiple doses of [place]- Synephrine. In the PACU he continued to have hypotension necessitating [place]- Synephrine and then finally levophed drip. Patient seen and examined at bedside in the PACU with FRONT ATTENDANT present. Patient is being started on levo. He is lethargic but opens his eyes to touch. He does not answer questions but appears comfortable. Vital signs reviewed General: nontoxic, mod distress, appears at stated age Cardiovascular: S1S2 reg, no murmur, positive posterior tibial pulse bilateral, Lungs: Decreased bs bilateral, no rhonchi, no rales , no accessory muscle use Abdominal: soft, nontender to palpation, no guarding, no appreciable organomegaly Ext: no gross muscle atrophy, no edema b/l lower extremities, no contractures Neuro: CN II-XI grossly intact, Moving all 4 extremities independently. Psych: Lethargic, opens eyes to touch Assessment/ Plan: 77 yo M with Right IT fracture s/p IM nailing Post-op hypotesion, related to spinal anesthesia, resolved Hx of HTN HLD - Continue NS at 75 cc/hr -Orthopedic surgery note reviewed: Weight-bear as tolerated with walker. Aspiri n 81 mg twice a day for DVT prophylaxis. - hold cozaar - lipitor 40 mg HS, questran 4 mg PO daily Acute blood loss anemia -Anticipated outcome of surgery -No indication for transfusion -Follow CBC DM 2 - Metformin on hold - SSI - Follow BS - A1C 6.3 Dementia with hx of behavioral disturbances - once more awake can resume Ruxulti - continue with Depakote, Namenda - Safe and supportive environment CAROL, resolved Imaging: None new for review. Data Review: Vital signs reviewed patient afebrile for the last 24 hours, alternatives have been ranging from a systolic of 109 up to 141. O2 sat has been in the low 90s on room air. Laboratory analysis revealed hemoglobin 10.5, chloride 109, magnesium 1.9 Thank you for allowing us to participate in the care of this pleasant patient. Do not hesitate to contact us with questions. Someone can be reached from the [facility] hospitalist group all hours of the day at [phone] or via Facebook serve. This dictation was prepared using [employer] voice recognition software. Though every attempt is made to correct errors during dictation some may still exist. Objective - Vital Signs Vital signs: Vital Signs Temp 98.5 F 05/19/23 08:00 Pulse 63 05/19/23 06:00 Resp 15 05/19/23 08:00 BP 109/73 05/19/23 08:00 Pulse Ox 94 L 05/19/23 08:00 FiO2 Intake & Output 05/18/23 05/19/23 05/19/23 18:59 06:59 18:59 Intake Total 2125 825 Output Total 360 450 Balance 1765 375 Intake: IV 1050 825 Sodium Chloride 0.9% 1, 825 000 ml @ 75 mls/hr IV . [id number] [facility] Rx#:[id number] Intake, IV Titration 1075 Amount Sodium Chloride 0.9% 1, 1000 000 ml @ 0 mls/hr IV .[facility] Rx#:[id number] Sodium Chloride 0.9% 1, 75 000 ml @ 75 mls/hr IV . [id number] [facility] Rx#:[id number] Output: Urine 335 450 Estimated Blood Loss 25 Other: Voiding Method Indwelling Catheter Indwelling Catheter - Labs CBC & Chem 7: 05/19/23 03:25 05/19/23 03:25 Labs: Abnormal Lab Results - Last 24 Hours (Table) 05/18/23 05/18/23 05/18/23 Range/Units 14:03 14:27 14:48 WBC 14.7 H (3.8-10.6) k/uL RBC 3.85 L (4.30-5.90) m/uL Hgb 11.5 L (13.0-17.5) gm/dL Hct 35.8 L (39.0-53.0) % Neutrophils # 11.4 H (1.3-7.7) k/uL ABG O2 Saturation 97.1 H (94-97) % Potassium (3.5-5.1) mmol/L Chloride (98-107) mmol/L Glucose (74-99) mg/dL POC Glucose (mg/dL) 116 H (70-110) mg/dL Calcium (8.4-10.2) mg/dL Magnesium (1.6-2.3) mg/dL Albumin (3.5-5.0) g/dL 05/18/23 05/18/23 05/19/23 Range/Units 14:48 21:06 03:25 WBC (3.8-10.6) k/uL RBC (4.30-5.90) m/uL Hgb (13.0-17.5) gm/dL Hct (39.0-53.0) % Neutrophils # (1.3-7.7) k/uL ABG O2 Saturation (94-97) % Potassium 5.3 H (3.5-5.1) mmol/L Chloride 110 H 109 H (98-107) mmol/L Glucose 139 H 106 H (74-99) mg/dL POC Glucose (mg/dL) 117 H (70-110) mg/dL Calcium 8.3 L (8.4-10.2) mg/dL Magnesium 1.5 L (1.6-2.3) mg/dL Albumin 3.4 L (3.5-5.0) g/dL 05/19/23 Range/Units 03:25 WBC (3.8-10.6) k/uL RBC 3.59 L (4.30-5.90) m/uL Hgb 10.5 L (13.0-17.5) gm/dL Hct 32.4 L (39.0-53.0) % Neutrophils # (1.3-7.7) k/uL ABG O2 Saturation (94-97) % Potassium (3.5-5.1) mmol/L Chloride (98-107) mmol/L Glucose (74-99) mg/dL POC Glucose (mg/dL) (70-110) mg/dL Calcium (8.4-10.2) mg/dL Magnesium (1.6-2.3) mg/dL Albumin (3.5-5.0) g/dL
[2023-05-19 16:42] LABS: Glucose,Whole Blood 151 mg/dL (70-110)
[2023-05-19] MEDS ORDERED: DEXTROSE 50% SYRINGE 50 ML IVP PRN ×2 (20:09)
[2023-05-19] MEDS ORDERED: SODIUM CHLORIDE 0.9% 1,000 ML IV ONE (20:09)
[2023-05-19] MEDS ORDERED: INSULIN REGULAR BOLUS (FROM DRIP BAG) IV ONE (20:09)
[2023-05-19] MEDS ORDERED: Potassium Replacement Protocol 1 EACH MISC MISCELLANE PRN (20:09)
[2023-05-19] MEDS ORDERED: SODIUM CHLORIDE 0.9% 1,000 ML IV SCH (20:15)
[2023-05-19] MEDS ORDERED: INSULIN REGULAR 100 UNIT in SODIUM CHLORIDE 0.9% 100 ML IV SCH (20:15)
[2023-05-19] MEDS ORDERED: D5-0.45% NACL WITH KCL 20MEQ/L 1,000 ML IV SCH (20:15)
[2023-05-19 20:45] LABS: Glucose,Whole Blood 148 mg/dL (70-110)
[2023-05-19] MEDS: ASPIRIN 81 MG PO SCH (22:16)
[2023-05-19] MEDS: SENNOSIDES-DOCUSATE SODIUM 1 EACH TAB PO SCH (22:16)
[2023-05-19] MEDS: ATORVASTATIN 20 MG TAB PO SCH (22:16)
[2023-05-19] MEDS: FOLIC ACID 1 MG TAB PO SCH (22:16)
[2023-05-20] MEDS: HYDROmorphone 0.5 MG/0.5 ML SYRINGE IVP PRN ×4 (03:46→17:11)
[2023-05-20 06:33] LABS: Glucose,Whole Blood 131 mg/dL (70-110)
[2023-05-20] MEDS: INSULIN ASPART (NovoLOG) 100 UNIT/ML VIAL SQ SCH ×3 (06:52→16:22)
[2023-05-20] MEDS: ASPIRIN 81 MG PO SCH (09:07)
[2023-05-20] MEDS: DIVALPROEX SPRINKLE 125 MG CAP.SPRINK PO SCH ×3 (09:08→17:13)
[2023-05-20] MEDS: MEMANTINE 10 MG TAB PO SCH ×3 (09:08→17:14)
[2023-05-20] MEDS: NON FORMULARY DRUG (Brexpiprazole [Rexulti] 1 MG Tablet) PO SCH (09:09)
[2023-05-20] MEDS: CHOLESTYRAMINE (WITH SUGAR) 4 GM PACKET PO SCH (09:09)
[2023-05-20] MEDS: SODIUM CHLORIDE 0.9% 1,000 ML IV SCH (09:15)
--- NOTE | 2023-05-20 10:33 | P.PN ---
Subjective Progress Note Date: 05/20/23 No acute events per nursing. The patient is still in the ICU because there are no beds on the floor available. Objective - Vital Signs Vital signs: Vital Signs Temp 97.6 F 05/20/23 08:00 Pulse 93 05/20/23 08:00 Resp 16 05/20/23 08:00 BP 141/90 05/20/23 08:00 Pulse Ox 96 05/20/23 08:00 FiO2 Intake & Output 05/19/23 05/20/23 05/20/23 18:59 06:59 18:59 Intake Total 900 900 Output Total 650 Balance 250 900 Weight 85.5 kg Intake: IV 900 900 Sodium Chloride 0.9% 1, 900 900 000 ml @ 75 mls/hr IV . [id number] [facility] Rx#:[id number] Output: Urine 650 Other: Voiding Method Indwelling Catheter Diaper Diaper # Voids 1 - Exam Advanced dementia, but awake. Dressings over right hip intact. Thigh soft. Moves foot/toes up and down. - Labs CBC & Chem 7: 05/19/23 03:25 05/19/23 03:25 Labs: Abnormal Lab Results - Last 24 Hours (Table) 05/19/23 05/19/23 05/20/23 Range/Units 16:39 20:43 06:32 POC Glucose (mg/dL) 151 H 148 H 131 H (70-110) mg/dL Assessment and Plan Assessment: POD#2 s/p right hip gamma nail Advanced dementia Plan: Continue treatment as outlined yesterday. Leave surgical dressings in place if possible.
--- NOTE | 2023-05-20 11:23 | P.PN ---
Subjective Progress Note Date: 05/20/23 Principal diagnosis: Acute intertrochanteric fracture and avulsion of lesser trochanter of right hip, status post surgery postoperative day #2 I am seeing this patient in new consultation today 05/19/2023 for postoperative hypotension following fixation of a right intertrochanteric hip fracture with short intramedullary hip screw. Patient is a 77-year-old white male with mul tiple medical comorbidities including diabetes mellitus type 2, hypertension, hyperlipidemia, BPH, and advanced dementia. Patient is a poor historian due to his advanced dementia. He resides at [facility], I believe the [place] location. While at their facility, he did experience a fall, landing on his right side and sustaining head trauma back on May 16. On arrival to the emergency room, CT of the brain and C-spine did not show any acute fractures or intracranial bleed. There were chronic degenerative disc changes of C6 and C7and grade 1 spondylolisthesis of C4 through C6. X-ray of the right hip and pelvis showed a intertrochanteric fracture and avulsion of the lesser trochanter. Patient is currently postoperative day #1 following a fixation of right intertrochanteric hip fracture with short intramedullary hip screw. Patient was successfully extubated in recovery. Perioperatively, the patient did experience some hypotension and was originally started on Neosynephrine which was transitioned to Levophed. Norepinephrine is currently paused after a 1 L normal saline bolus. Patient is lying in bed, on room air, in no acute distress. He is alert but very confused. This is reportedly his baseline. He does not follow commands. Does not appear to be in pain, no facial grimacing or vocalizations. Right hip incision site appears approximated and dressing is clean and dry. Postoperative CBC shows a WBC count of 14.7, hemoglobin stable at 11.5, hematocrit 35.8, platelets 224. BMP postoperatively shows a sodium 144, potassium 5.3, chloride 110, serum bicarb 22, BUN 19, creatinine 1.04, glucose 139. Normal saline is infusing at 75 mL per hour. Vital signs have stabilized, and the patient is being monitored in the intensive care unit. Reevaluated today on 05/20/2023, patient was reevaluated today remains in the ICU as an overflow, he has no active pulmonary issues, patient is on room air, he is recovering from his recent surgery, and the plan is to transfer the patient either to a regular medical floor or even consider sending him back to [facility]. Patient does not seem to be in any distress, he is confused and he does have underlying severe dementia Objective - Vital Signs Vital signs: Vital Signs Temp 97.6 F 05/20/23 08:00 Pulse 93 05/20/23 08:00 Resp 16 05/20/23 08:00 BP 141/90 05/20/23 08:00 Pulse Ox 96 05/20/23 08:00 FiO2 Intake & Output 05/19/23 05/20/23 05/20/23 18:59 06:59 18:59 Intake Total 900 900 Output Total 650 Balance 250 900 Weight 85.5 kg Intake: IV 900 900 Sodium Chloride 0.9% 1, 900 900 000 ml @ 75 mls/hr IV . [id number] [facility] Rx#:[id number] Output: Urine 650 Other: Voiding Method Indwelling Catheter Diaper Diaper # Voids 1 - Exam Physical Exam: Revealed a 77-year-old white male in no distress on room air Head: Atraumatic, normocephalic HEENT:[Neck is supple.] [No neck masses.] [No thyromegaly.] [No JVD.] Chest: [Clear throughout, no crackles, no rhonchi, no wheezes.] Cardiac Exam: [Normal S1 and S2, no S3 gallop, no murmur.] Abdomen: [Soft, nontender, no megaly, no rebound, no guarding, normal bowel sounds.] Extremities: [No clubbing, no edema, no cyanosis.] Surgical dressing on right hip seems to be clean and intact, Neurological Exam: Confused, demented otherwise no gross focal deficit Psychiatric: Flat affect, and the patient is confused - Labs CBC & Chem 7: 05/19/23 03:25 05/19/23 03:25 Labs: Abnormal Lab Results - Last 24 Hours (Table) 05/19/23 05/19/23 05/20/23 Range/Units 16:39 20:43 06:32 POC Glucose (mg/dL) 151 H 148 H 131 H (70-110) mg/dL Assessment and Plan Assessment: Impression: intertrochanteric fracture and avulsion of the lesser trochanter of the right hip status postoperative day #2 /following fixation of a right intertrochanteric hip fracture with short intramedullary hip screw. Hypovolemic hypotension resolved Advanced dementia Degenerative disc disease Type 2 diabetes without complications Benign essential hypertension Dyslipidemia Recommendation: Transfer patient out of the ICU to a regular medical floor Continue incentive spirometry Continue GI and DVT prophylaxis We'll clear the patient for discharge once cleared by orthopedics on the case. We'll continue to follow. Time with Patient: Less than 30
[2023-05-20 11:32] VITALS: BMI 24.8
--- NOTE | 2023-05-20 11:32 | P.PN ---
Subjective Progress Note Date: 05/20/23 Hospital Course: Patient is a 77-year-old male with hypertension, dyslipidemia, diabetes, and dementia who presented after a fall with right hip fracture. Patient is at a [facility] facility and often wanders the hallway. Has no history of stroke, CHF, chronic kidney disease. Patient underwent operative fixation of his right two-part intertrochanteric fracture with IM nailing on 05/18/23. During the procedure he had some hypotension requiring multiple doses of Wilton-Synephrine. In the PACU he continued to have hypotension necessitating Wilton- Synephrine and then finally levophed drip. Now off of pressors. Patient is having hyperactive delirium in the setting of advanced dementia. Subjective: Seen and examined at bedside. Has set her at bedside. Often pulling catheters not taking medications. Pertinent positives and negatives as discussed above, a complete review of systems was performed and all other systems are negative. Vitals Signs Reviewed. General: nontoxic, no distress, appears at stated age Derm: warm, dry Head: atraumatic, normocephalic, symmetric Eyes: EOMI, no lid lag, anicteric sclera Mouth: no lip lesion, mucus membranes moist Cardiovascular: S1S2 reg, no murmur Lungs: CTA bilateral, no rhonchi, no rales , no accessory muscle use Abdominal: soft, nontender to palpation, no guarding, no appreciable organomegaly Ext: no gross muscle atrophy, no edema, no contractures Neuro: CN II-XI grossly intact, no focal neuro deficits, moving all extremities Psych: Alert, not oriented, cannot follow commands Data Reviewed Today: Pertinent Labs: No new labs Imaging: No new imaging Assessment and Plan: 77 yo M with Right IT fracture s/p IM nailing Post-op hypotesion, related to spinal anesthesia, resolved Hx of HTN HLD - Continue NS at 75 cc/hr -Orthopedic surgery note reviewed: Weight-bear as tolerated with walker. Aspirin 81 mg twice a day for DVT prophylaxis. - hold cozaar - lipitor 40 mg HS, questran 4 mg PO daily -ICU note reviewed, patient to be transferred to the floors Acute blood loss anemia -Anticipated outcome of surgery -No indication for transfusion -Follow CBC DM 2 - Metformin on hold - SSI - Follow BS - A1C 6.3 Dementia with hx of behavioral disturbances Likely hyperactive delerium - once more awake can resume Ruxulti - continue with Depakote, Namenda - Safe and supportive environment - Needs adequate pain control, currently on oral Tylenol as needed, hydrocodone as needed, IV Dilaudid as needed CAROL, resolved Thank you for allowing us to participate in the care of this pleasant patient. Do not hesitate to contact us with questions. Someone can be reached from the [facility] hospitalist group all hours of the day at [phone] or via perfect serve. Objective - Vital Signs Vital signs: Vital Signs Temp 97.6 F 05/20/23 08:00 Pulse 93 05/20/23 08:00 Resp 16 05/20/23 08:00 BP 141/90 05/20/23 08:00 Pulse Ox 96 05/20/23 08:00 FiO2 Intake & Output 05/19/23 05/20/23 05/20/23 18:59 06:59 18:59 Intake Total 900 900 Output Total 650 Balance 250 900 Weight 85.5 kg 85.5 kg Intake: IV 900 900 Sodium Chloride 0.9% 1, 900 900 000 ml @ 75 mls/hr IV . [id number] [facility] Rx#:[id number] Output: Urine 650 Other: Voiding Method Indwelling Catheter Diaper Diaper # Voids 1 - Labs CBC & Chem 7: 05/19/23 03:25 05/19/23 03:25 Labs: Abnormal Lab Results - Last 24 Hours (Table) 05/19/23 05/19/23 05/20/23 Range/Units 16:39 20:43 06:32 POC Glucose (mg/dL) 151 H 148 H 131 H (70-110) mg/dL
[2023-05-20] MEDS: CYANOCOBALAMIN 500 MCG TAB PO SCH (12:00)
[2023-05-20 12:27] LABS: Basophils # (A) 0.1 k/uL (0-0.2); Basophils % (A) 1 %; Eosinophils # (A) 0.3 k/uL (0-0.7); Eosinophils % (A) 3 %; HCT 30.3 % (39.0-53.0); Lymphocytes # (A) 1.2 k/uL (1.0-4.8); Lymphocytes % (A) 12 %; MCH 30.1 pg (25.0-35.0); MCHC 32.9 g/dL (31.0-37.0); MCV 91.5 fL (80.0-100.0); Mean Platelet Volume 11.5; Monocytes # (A) 0.7 k/uL (0-1.0); Monocytes % (A) 7 %; Neutrophils # (A) 7.7 k/uL (1.3-7.7); Neutrophils % (A) 77 %; Platelet Count 178 k/uL (150-450); RBC 3.31 m/uL (4.30-5.90); RDW 13.8 % (11.5-15.5); WBC 10.1 k/uL (3.8-10.6)
[2023-05-21] MEDS: ASPIRIN 81 MG PO SCH ×3 (00:10→21:30)
[2023-05-21] MEDS: INSULIN ASPART (NovoLOG) 100 UNIT/ML VIAL SQ SCH ×5 (00:10→21:30)
[2023-05-21] MEDS: ATORVASTATIN 20 MG TAB PO SCH ×2 (00:10→20:22)
[2023-05-21] MEDS: FOLIC ACID 1 MG TAB PO SCH ×2 (00:10→20:22)
[2023-05-21] MEDS: SENNOSIDES-DOCUSATE SODIUM 1 EACH TAB PO SCH ×2 (00:11→21:30)
[2023-05-21] MEDS: HYDROmorphone 0.5 MG/0.5 ML SYRINGE IVP PRN (02:57)
[2023-05-21] MEDS: SODIUM CHLORIDE 0.9% 1,000 ML IV SCH ×3 (02:58→23:53)
[2023-05-21 04:34] LABS: Basophils % (A) 0 %; Eosinophils # (A) 0.1 k/uL (0-0.7); Eosinophils % (A) 1 %; HCT 32.9 % (39.0-53.0); HGB 10.9 gm/dL (13.0-17.5); Lymphocytes % (A) 7 %; MCHC 33.2 g/dL (31.0-37.0); MCV 90.3 fL (80.0-100.0); Monocytes # (A) 0.9 k/uL (0-1.0); Monocytes % (A) 6 %; Neutrophils # (A) 12.2 k/uL (1.3-7.7); Neutrophils % (A) 85 %; Platelet Count 235 k/uL (150-450); RBC 3.65 m/uL (4.30-5.90); RDW 13.6 % (11.5-15.5); WBC 14.4 k/uL (3.8-10.6)
[2023-05-21 04:49] LABS: African American GFR (CKD) 38 (>60 ml/min/1.73 sqM); Anion Gap 12 mmol/L; Blood Urea Nitrogen 25 mg/dL (9-20); Calcium 8.7 mg/dL (8.4-10.2); Carbon Dioxide 20 mmol/L (22-30); Chloride 110 mmol/L (98-107); Glucose 160 mg/dL (74-99); Non-African American GFR(CKD) 33 (>60 ml/min/1.73 sqM); Potassium 4.7 mmol/L (3.5-5.1); Sodium 142 mmol/L (137-145)
[2023-05-21] MEDS: MEMANTINE 10 MG TAB PO SCH ×2 (07:14→18:29)
[2023-05-21] MEDS: DIVALPROEX SPRINKLE 125 MG CAP.SPRINK PO SCH ×2 (07:14→18:29)
[2023-05-21] MEDS: NON FORMULARY DRUG (Brexpiprazole [Rexulti] 1 MG Tablet) PO SCH (08:08)
--- NOTE | 2023-05-21 08:39 | P.PN ---
Subjective Progress Note Date: 05/21/23 This patient is a 77- year old male who is status-post operative fixation of right intertrochanteric hip fracture with short intramedullary hip screw on 05/18/23. Today is post-operative day #3. Patient is examined bedside Knee. He remains in the ICU as overflow. He will be transferred to the medical floor once there is a bed available. He is confused and a sitter at his bedside. He complains of no pain. He is resting in bed comfortably. Objective - Vital Signs Vital signs: Vital Signs Temp 98.1 F 05/21/23 02:00 Pulse 78 05/21/23 02:00 Resp 14 05/21/23 02:00 BP 140/88 05/21/23 02:00 Pulse Ox 95 05/21/23 02:00 FiO2 Intake & Output 05/20/23 05/21/23 05/21/23 18:59 06:59 18:59 Intake Total 600 900 Output Total 650 Balance -50 900 Weight 85.5 kg 87.1 kg Intake: IV 600 900 Sodium Chloride 0.9% 1, 600 900 000 ml @ 75 mls/hr IV . [id number] [facility] Rx#:[id number] Output: Urine 650 Other: Voiding Method Diaper Diaper # Voids 2 1 - Exam On examination, patient is sitting up in bed in no apparent distress. He is confused. On inspection of the right hip, there are clean, dry, intact surgical dressings in place. No bleeding or drainage through the dressing. Mild swelling of the thigh, thigh is soft and compressible. Motor and sensory function intact RLE. RLE warm and well perfused. Calf nontender. - Labs CBC & Chem 7: 05/21/23 03:46 05/21/23 03:46 Labs: Abnormal Lab Results - Last 24 Hours (Table) 05/20/23 05/21/23 05/21/23 Range/Units 03:13 03:46 03:46 WBC 14.4 H (3.8-10.6) k/uL RBC 3.31 L 3.65 L (4.30-5.90) m/uL Hgb 10.0 L 10.9 L (13.0-17.5) gm/dL Hct 30.3 L 32.9 L (39.0-53.0) % Neutrophils # 12.2 H (1.3-7.7) k/uL Chloride 110 H (98-107) mmol/L Carbon Dioxide 20 L (22-30) mmol/L BUN 25 H (9-20) mg/dL Creatinine 1.92 H (0.66-1.25) mg/dL Glucose 160 H (74-99) mg/dL Assessment and Plan Assessment: Status-post operative fixation of right intertrochanteric hip fracture with short intramedullary hip screw on 05/18/23. Post-op day #3. Plan: - Patient may weight bear to tolerance on operative extremity with a walker. Up with assistance, up with a walker. - Physical therapy consulted for mobilization. - Keep operative dressing in place. - Pain medications as needed. - Aspirin 81mg BID for DVT prophylaxis. - Medical management per internal medicine, pulmonology. - Patient is awaiting bed on medical floor. Case management consulted for discharge planning. Discharge to rehab. He is ok for discharge from an orthopedic standpoint.
--- NOTE | 2023-05-21 10:12 | P.PN ---
Subjective Progress Note Date: 05/21/23 Principal diagnosis: Acute intertrochanteric fracture and avulsion of lesser trochanter of right hip, status post surgery postoperative day #3 I am seeing this patient in new consultation today 05/19/2023 for postoperative hypotension following fixation of a right intertrochanteric hip fracture with short intramedullary hip screw. Patient is a 77-year-old white male with mult iple medical comorbidities including diabetes mellitus type 2, hypertension, hyperlipidemia, BPH, and advanced dementia. Patient is a poor historian due to his advanced dementia. He resides at [facility], I believe the [place] location. While at their facility, he did experience a fall, landing on his right side and sustaining head trauma back on May 16. On arrival to the emergency room, CT of the brain and C-spine did not show any acute fractures or intracranial bleed. There were chronic degenerative disc changes of C6 and C7and grade 1 spondylolisthesis of C4 through C6. X-ray of the right hip and pelvis showed a intertrochanteric fracture and avulsion of the lesser trochanter. Patient is currently postoperative day #1 following a fixation of right intertrochanteric hip fracture with short intramedullary hip screw. Patient was successfully extubated in recovery. Perioperatively, the patient did experience some hypotension and was originally started on Neosynephrine which was transitioned to Levophed. Norepinephrine is currently paused after a 1 L normal saline bolus. Patient is lying in bed, on room air, in no acute distress. He is alert but very confused. This is reportedly his baseline. He does not follow commands. Does not appear to be in pain, no facial grimacing or vocalizations. Right hip incision site appears approximated and dressing is clean and dry. Postoperative CBC shows a WBC count of 14.7, hemoglobin stable at 11.5, hematocrit 35.8, platelets 224. BMP postoperatively shows a sodium 144, potassium 5.3, chloride 110, serum bicarb 22, BUN 19, creatinine 1.04, glucose 139. Normal saline is infusing at 75 mL per hour. Vital signs have stabilized, and the patient is being monitored in the intensive care unit. Reevaluated today on 05/20/2023, patient was reevaluated today remains in the ICU as an overflow, he has no active pulmonary issues, patient is on room air, he is recovering from his recent surgery, and the plan is to transfer the patient either to a regular medical floor or even consider sending him back to [facility]. Patient does not seem to be in any distress, he is confused and he does have underlying severe dementia Patient was reevaluated today on 05/21/2023, patient continues to do well, relatively asymptomatic, no specific complaints, we will clear the patient to be discharged back to group home or a regular medical floor, however he needs to BE cleared by orthopedics on the case Objective - Vital Signs Vital signs: Vital Signs Temp 98.1 F 05/21/23 02:00 Pulse 78 05/21/23 02:00 Resp 14 05/21/23 02:00 BP 140/88 05/21/23 02:00 Pulse Ox 95 05/21/23 02:00 FiO2 Intake & Output 05/20/23 05/21/23 05/21/23 18:59 06:59 18:59 Intake Total 600 900 Output Total 650 Balance -50 900 Weight 85.5 kg 87.1 kg Intake: IV 600 900 Sodium Chloride 0.9% 1, 600 900 000 ml @ 75 mls/hr IV . [id number] [facility] Rx#:[id number] Output: Urine 650 Other: Voiding Method Diaper Diaper # Voids 2 1 - Exam Physical Exam: Revealed a 77-year-old white male in no distress on room air Head: Atraumatic, normocephalic HEENT:[Neck is supple.] [No neck masses.] [No thyromegaly.] [No JVD.] Chest: [Clear throughout, no crackles, no rhonchi, no wheezes.] Cardiac Exam: [Normal S1 and S2, no S3 gallop, no murmur.] Abdomen: [Soft, nontender, no megaly, no rebound, no guarding, normal bowel sounds.] Extremities: [No clubbing, no edema, no cyanosis.] Surgical dressing on right hip seems to be clean and intact, Neurological Exam: Confused, demented otherwise no gross focal deficit Psychiatric: Flat affect, and the patient is confused - Labs CBC & Chem 7: 05/21/23 03:46 05/21/23 03:46 Labs: Abnormal Lab Results - Last 24 Hours (Table) 05/20/23 05/21/23 05/21/23 Range/Units 03:13 03:46 03:46 WBC 14.4 H (3.8-10.6) k/uL RBC 3.31 L 3.65 L (4.30-5.90) m/uL Hgb 10.0 L 10.9 L (13.0-17.5) gm/dL Hct 30.3 L 32.9 L (39.0-53.0) % Neutrophils # 12.2 H (1.3-7.7) k/uL Chloride 110 H (98-107) mmol/L Carbon Dioxide 20 L (22-30) mmol/L BUN 25 H (9-20) mg/dL Creatinine 1.92 H (0.66-1.25) mg/dL Glucose 160 H (74-99) mg/dL Assessment and Plan Assessment: Impression: intertrochanteric fracture and avulsion of the lesser trochanter of the right hip status postoperative day #3/following fixation of a right intertrochanteric hip fracture with short intramedullary hip screw. Hypovolemic hypotension resolved Advanced dementia Degenerative disc disease Type 2 diabetes without complications Benign essential hypertension Dyslipidemia Recommendation: Cleared for discharge from pulmonary perspective needs clearance by orthopedics Continue incentive spirometry Patient could be sent back to [facility] if cleared by orthopedic Time with Patient: Less than 30
[2023-05-21] MEDS: CYANOCOBALAMIN 500 MCG TAB PO SCH (12:01)
[2023-05-21] MEDS: CHOLESTYRAMINE (WITH SUGAR) 4 GM PACKET PO SCH (12:01)
--- NOTE | 2023-05-21 13:09 | P.PN ---
Subjective Progress Note Date: 05/21/23 Hospital Course: Patient is a 77-year-old male with hypertension, dyslipidemia, diabetes, and dementia who presented after a fall with right hip fracture. Patient is at a senior care facility and often wanders the hallway. Has no history of stroke, CHF, chronic kidney disease. Patient underwent operative fixation of his right two-part intertrochanteric fracture with IM nailing on 05/18/23. During the procedure he had some hypotension requiring multiple doses of Wilton- Synephrine. In the PACU he continued to have hypotension necessitating Wilton- Synephrine and then finally levophed drip. Now off of pressors. Patient is having hyperactive delirium in the setting of advanced dementia. Also has a CAROL. Urinary retention Sitter at bedside. Subjective: Seen and examined at bedside. Has sitter at bedside. Pulled out urinary catheter. Pertinent positives and negatives as discussed above, a complete review of systems was performed and all other systems are negative. Vitals Signs Reviewed. General: nontoxic, no distress, appears at stated age Derm: warm, dry Head: atraumatic, normocephalic, symmetric Eyes: EOMI, no lid lag, anicteric sclera Mouth: no lip lesion, mucus membranes moist Cardiovascular: S1S2 reg, no murmur Lungs: CTA bilateral, no rhonchi, no rales , no accessory muscle use Abdominal: soft, nontender to palpation, no guarding, no appreciable organo megaly Ext: no gross muscle atrophy, no edema, no contractures Neuro: CN II-XI grossly intact, no focal neuro deficits, moving all extremities Psych: Alert, not oriented, cannot follow commands Data Reviewed Today: Pertinent Labs: WBC 14.4, hemoglobin 10.9, bicarbonate 20, anion gap 12, creatinine 1.92 Imaging: No new imaging Assessment and Plan: 77 yo M with Right IT fracture s/p IM nailing Post-op hypotesion, related to spinal anesthesia, resolved Hx of HTN Hx of HLD Acute Urinary retention Acute kidney injury Acute metabolic encephalopathy History of dementia with behavioral disturbances -Pending straight cath - Continue NS at 75 cc/hr -Orthopedic surgery note reviewed: Cleared for discharge Weight-bear as tolerated with walker. Aspirin 81 mg twice a day for DVT prophylaxis. - hold cozaar - lipitor 40 mg HS, questran 4 mg PO daily -ICU note reviewed, patient to be transferred to the floors versus discharge -Discussed with nursing, avoid narcotics, give Tylenol for pain - continue with Colette Marroquin Acute blood loss anemia, but: Stable -Anticipated outcome of surgery -No indication for transfusion Leukocytosis, likely reactive DM 2 - Metformin on hold - SSI - Follow BS - A1C 6.3 Thank you for allowing us to participate in the care of this pleasant patient. Do not hesitate to contact us with questions. Someone can be reached from the [facility] hospitalist group all hours of the day at [phone] or via May[employer]n. Objective - Vital Signs Vital signs: Vital Signs Temp 98.1 F 05/21/23 02:00 Pulse 78 05/21/23 02:00 Resp 14 05/21/23 02:00 BP 140/88 05/21/23 02:00 Pulse Ox 95 05/21/23 02:00 FiO2 Intake & Output 05/20/23 05/21/23 05/21/23 18:59 06:59 18:59 Intake Total 600 900 Output Total 650 Balance -50 900 Weight 85.5 kg 87.1 kg Intake: IV 600 900 Sodium Chloride 0.9% 1, 600 900 000 ml @ 75 mls/hr IV . [id number] [facility] Rx#:[id number] Output: Urine 650 Other: Voiding Method Diaper Diaper Diaper # Voids 2 1 - Labs CBC & Chem 7: 05/21/23 03:46 05/21/23 03:46 Labs: Abnormal Lab Results - Last 24 Hours (Table) 05/21/23 05/21/23 Range/Units 03:46 03:46 WBC 14.4 H (3.8-10.6) k/uL RBC 3.65 L (4.30-5.90) m/uL Hgb 10.9 L (13.0-17.5) gm/dL Hct 32.9 L (39.0-53.0) % Neutrophils # 12.2 H (1.3-7.7) k/uL Chloride 110 H (98-107) mmol/L Carbon Dioxide 20 L (22-30) mmol/L BUN 25 H (9-20) mg/dL Creatinine 1.92 H (0.66-1.25) mg/dL Glucose 160 H (74-99) mg/dL
[2023-05-21] MEDS: TAMSULOSIN 0.4 MG CAP.ER.24H PO SCH (18:29)
[2023-05-22] MEDS ORDERED: HALOPERIDOL LACTATE 5 MG/ML 1 ML VIAL IM STA (03:06)
--- NOTE | 2023-05-22 09:25 | P.PN ---
Subjective Progress Note Date: 05/22/23 This patient is a 77- year old male who is status-post operative fixation of right intertrochanteric hip fracture with short intramedullary hip screw on 05/18/23. Today is post-operative day #4. Patient is examined bedside this morning with Dr. Ruiz. He has been transferred to [address] [place] [address] out of the ICU. He is confused and a sitter at his bedside. Objective - Vital Signs Vital signs: Vital Signs Temp 98.3 F 05/22/23 01:58 Pulse 111 H 05/22/23 01:58 Resp 16 05/22/23 01:58 BP 139/77 05/22/23 01:58 Pulse Ox 97 05/22/23 01:58 FiO2 Intake & Output 05/21/23 05/22/23 05/22/23 18:59 06:59 18:59 Intake Total 1150 Output Total 1000 1100 Balance 150 -1100 Intake: IV 900 Sodium Chloride 0.9% 1, 900 000 ml @ 75 mls/hr IV . [id number] [facility] LICENSE OF [facility] Rx#:[id number] Oral 250 Output: Urine 1000 1100 Other: Voiding Method Diaper Diaper # Voids 2 - Exam On examination, patient is sitting up in bed in no apparent distress. He is confused. On inspection of the right hip, there are clean, dry, intact surgical dressings in place. No bleeding or drainage through the dressing. Mild swelling of the thigh, thigh is soft and compressible. Motor and sensory function intact RLE. RLE warm and well perfused. Calf nontender. - Labs CBC & Chem 7: 05/21/23 03:46 05/21/23 03:46 Assessment and Plan Assessment: Status-post operative fixation of right intertrochanteric hip fracture with short intramedullary hip screw on 05/18/23. Post-op day #4. Plan: - Patient may weight bear to tolerance on operative extremity with a walker. Up with assistance, up with a walker. - Physical therapy consulted for mobilization. - Keep operative dressing in place. - Pain medications as needed. - Aspirin 81mg BID for DVT prophylaxis. - He is ok for discharge from an orthopedic standpoint. We will follow peripherally as he remains inpatient.
[2023-05-22] MEDS: NON FORMULARY DRUG (Brexpiprazole [Rexulti] 1 MG Tablet) PO SCH (10:01)
[2023-05-22] MEDS: CHOLESTYRAMINE (WITH SUGAR) 4 GM PACKET PO SCH (10:02)
[2023-05-22] MEDS: TAMSULOSIN 0.4 MG CAP.ER.24H PO SCH (10:13)
[2023-05-22] MEDS: CYANOCOBALAMIN 500 MCG TAB PO SCH (10:13)
[2023-05-22] MEDS: ASPIRIN 81 MG PO SCH (10:13)
[2023-05-22] MEDS: MEMANTINE 10 MG TAB PO SCH ×2 (10:14→10:24)
[2023-05-22] MEDS: DIVALPROEX SPRINKLE 125 MG CAP.SPRINK PO SCH (10:14)
[2023-05-22] MEDS: INSULIN ASPART (NovoLOG) 100 UNIT/ML VIAL SQ SCH ×2 (10:15→12:32)
[2023-05-22 10:17] LABS: Glucose,Whole Blood 149 mg/dL (70-110)
[2023-05-22 10:46] LABS: Basophils % (A) 0 %; Eosinophils # (A) 0.7 k/uL (0-0.7); Eosinophils % (A) 7 %; HCT 27.2 % (39.0-53.0); Lymphocytes # (A) 1.1 k/uL (1.0-4.8); Lymphocytes % (A) 11 %; MCH 30.3 pg (25.0-35.0); Mean Platelet Volume 9.5; Monocytes # (A) 0.6 k/uL (0-1.0); Monocytes % (A) 6 %; Neutrophils # (A) 7.5 k/uL (1.3-7.7); Neutrophils % (A) 75 %; Platelet Count 271 k/uL (150-450); RBC 3.06 m/uL (4.30-5.90); RDW 13.7 % (11.5-15.5)
[2023-05-22 11:00] LABS: HGB 9.3 gm/dL (13.0-17.5)
[2023-05-22 11:05] LABS: African American GFR (CKD) 47 (>60 ml/min/1.73 sqM); Anion Gap 9 mmol/L; Blood Urea Nitrogen 32 mg/dL (9-20); Calcium 8.4 mg/dL (8.4-10.2); Carbon Dioxide 21 mmol/L (22-30); Chloride 115 mmol/L (98-107); Glucose 137 mg/dL (74-99); Non-African American GFR(CKD) 41 (>60 ml/min/1.73 sqM); Potassium 4.2 mmol/L (3.5-5.1); Sodium 145 mmol/L (137-145)
[2023-05-22 11:52] LABS: Glucose,Whole Blood 140 mg/dL (70-110)
--- NOTE | 2023-05-22 12:07 | P.PN ---
Subjective Progress Note Date: 05/22/23 I am seeing this patient in new consultation today 05/19/2023 for postoperative hypotension following fixation of a right intertrochanteric hip fracture with short intramedullary hip screw. Patient is a 77-year-old white male with multiple medical comorbidities including diabetes mellitus type 2, hypertension, hyperlipidemia, BPH, and advanced dementia. Patient is a poor historian due to his advanced dementia. He resides at [facility], I believe the [place] location. While at their facility, he did experience a fall, landing on his right side and sustaining head trauma back on May 16. On arrival to the emergency room, CT of the brain and C-spine did not show any acute fractures or intracranial bleed. There were chronic degenerative disc changes of C6 and C7and grade 1 spondylolisthesis of C4 through C6. X-ray of the right hip and pelvis showed a intertrochanteric fracture and avulsion of the lesser trochanter. Patient is currently postoperative day #1 following a fixation of right intertrochanteric hip fracture with short intramedullary hip screw. Patient was successfully extubated in recovery. Perioperatively, the patient did experience some hypotension and was originally started on Neosynephrine which was transitioned to Levophed. Norepinephrine is currently paused after a 1 L normal saline bolus. Patient is lying in bed, on room air, in no acute distress. He is alert but very confused. This is reportedly his baseline. He does not follow commands. Does not appear to be in pain, no facial grimacing or vocalizations. Right hip incision site appears approximated and dressing is clean and dry. Postoperative CBC shows a WBC count of 14.7, hemoglobin stable at 11.5, hematocrit 35.8, platelets 224. BMP postoperatively shows a sodium 144, potassium 5.3, chloride 110, serum bicarb 22, BUN 19, creatinine 1.04, glucose 139. Normal saline is infusing at 75 mL per hour. Vital signs have stabilized, and the patient is being monitored in the intensive care unit. Reevaluated today on 05/20/2023, patient was reevaluated today remains in the ICU as an overflow, he has no active pulmonary issues, patient is on room air, he is recovering from his recent surgery, and the plan is to transfer the patient either to a regular medical floor or even consider sending him back to [facility]. Patient does not seem to be in any distress, he is confused and he does have underlying severe dementia Patient was reevaluated today on 05/21/2023, patient continues to do well, relatively asymptomatic, no specific complaints, we will clear the patient to be discharged back to skilled nursing or a regular medical floor, however he needs to BE cleared by orthopedics on the case The patient is seen today 05/22/2023 in follow-up on the regular medical floor. Postoperative day #4. He is awake and alert. He remains confused. human resources intern at the bedside. Maintaining good O2 saturations in the mid 90s on room air. Afebrile. Hemodynamically stable. White count 10.60. Hemoglobin 9.3. Platelets 271. Sodium of 55. Potassium 4.2. Bicarb 21. BUN 32. Creatinine 1.61. Blood glucose 137. Objective - Vital Signs Vital signs: Vital Signs Temp 96.3 F L 05/22/23 10:30 Pulse 77 05/22/23 10:30 Resp 16 05/22/23 10:30 BP 98/42 05/22/23 10:30 Pulse Ox 96 05/22/23 10:30 FiO2 Intake & Output 05/21/23 05/22/23 05/22/23 18:59 06:59 18:59 Intake Total 1150 Output Total 1000 1100 675 Balance 150 -1100 -675 Intake: IV 900 Sodium Chloride 0.9% 1, 900 000 ml @ 75 mls/hr IV . [id number] [facility] Rx#:[id number] Oral 250 Output: Urine 1000 1100 675 Other: Voiding Method Diaper Diaper Indwelling Catheter # Voids 2 - Exam GENERAL EXAM: Alert, severely demented, 77-year-old male, on room air, fairly comfortable in no apparent distress. HEAD: Normocephalic with a small abrasion on the forehead EYES: Normal reaction of pupils, equal size. NOSE: Clear with pink turbinates. THROAT: No erythema or exudates. NECK: No masses, no JVD. CHEST: No chest wall deformity. LUNGS: Equal air entry with no crackles, wheeze, rhonchi or dullness. No conversational dyspnea or accessory muscle use.. CVS: S1 and S2 normal with no audible murmur, regular rhythm. No extra heart sounds ABDOMEN: No hepatosplenomegaly, active bowel sounds, no guarding or rigidity. SPINE: No scoliosis or deformity SKIN: No rashes CENTRAL NERVOUS SYSTEM: No focal deficits, tone is normal in all 4 extremities. EXTREMITIES: Right hip postoperative incision well approximated, postoperative dressing clean and dry. There is no peripheral edema, clubbing, or cyanosis. Peripheral pulses are intact. - Labs CBC & Chem 7: 05/22/23 10:10 05/22/23 10:10 Labs: Abnormal Lab Results - Last 24 Hours (Table) 05/22/23 05/22/23 05/22/23 Range/Units 10:10 10:10 10:15 RBC 3.06 L (4.30-5.90) m/uL Hgb 9.3 L D (13.0-17.5) gm/dL Hct 27.2 L (39.0-53.0) % Chloride 115 H (98-107) mmol/L Carbon Dioxide 21 L (22-30) mmol/L BUN 32 H (9-20) mg/dL Creatinine 1.61 H (0.66-1.25) mg/dL Glucose 137 H (74-99) mg/dL POC Glucose (mg/dL) 149 H (70-110) mg/dL 05/22/23 Range/Units 11:51 RBC (4.30-5.90) m/uL Hgb (13.0-17.5) gm/dL Hct (39.0-53.0) % Chloride (98-107) mmol/L Carbon Dioxide (22-30) mmol/L BUN (9-20) mg/dL Creatinine (0.66-1.25) mg/dL Glucose (74-99) mg/dL POC Glucose (mg/dL) 140 H (70-110) mg/dL Assessment and Plan Assessment: Fall sustaining intertrochanteric fracture and avulsion of the lesser trochanter of the right hip status postoperative day #4 following fixation of a right intertrochanteric hip fracture with short intramedullary hip screw. Hypotension, recovered. Leukocytosis, likely reactive to surgery Advanced dementia Degenerative disc disease Diabetes mellitus type 2 Essential hypertension Hyperlipidemia BPH Plan: The patient was seen and evaluated Labs and medications reviewed Currently stable and on room air Cleared for discharge from the pulmonary standpoint Plan is to return to [facility] I have personally seen and examined the patient, performed the documentation and the assessment and plan as written. Number of minutes spent on the visit: 10.
--- NOTE | 2023-05-22 13:00 | P.DS ---
Providers Date of admission: 05/16/23 23:42 Expected date of discharge: 05/22/23 Attending physician: Barry Macedo MD Consults: 05/16/23 23:42 Consult Physician Urgent Consulting Provider: Mouna Badillo Consult Reason/Comments: hip fracture, medical clearance Do you want consulting provider notified?: Yes 05/18/23 13:37 Consult Physician Routine Consulting Provider: Umer Jacinto Consult Reason/Comments: Hypotension Do you want consulting provider notified?: Already Contacted 05/22/23 09:14 Consult Physician Routine Consulting Provider: Festus Ruiz Consult Reason/Comments: known Do you want consulting provider notified?: Already Contacted Primary care physician: Negar Santos DO Hospital Course: Discharge Diagnosis: Acute traumatic right hip fracture status post IM nailing Postoperative hypotension, related to spinal anesthesia Hypertension Dyslipidemia Acute urinary retention Acute kidney injury Acute metabolic encephalopathy in the setting of dementia with behavioral disturbances Acute blood loss anemia, anticipated outcome of surgery Leukocytosis, likely reactive Type 2 diabetes Hospital Course: Patient is a 77-year-old male with hypertension, dyslipidemia, diabetes, and dementia who presented after a fall with right hip fracture. [facility] and often wanders the hallway. Has no history of stroke, CHF, chronic kidney disease. Patient underwent operative fixation of his right two-part intertrochanteric fracture with IM nailing on 05/18/23. During the procedure he had some hypotension requiring multiple doses of Wilton- Synephrine. In the PACU he continued to have hypotension necessitating Wilton- Synephrine and then finally levophed drip. Now off of pressors. Patient is having hyperactive delirium in the setting of advanced dementia. Also has a CAROL. Urinary retention. Acute kidney injury resolving after Schumacher placement. Repeat BMP in 2-3 days. Voiding trial in 2-3 days. Metformin and losartan held at discharge. Patient seen and examined at bedside. Vital signs reviewed and stable. General: nontoxic, no distress, appears at stated age Derm: warm, dry Head: atraumatic, normocephalic, symmetric Eyes: EOMI, no lid lag, anicteric sclera Mouth: no lip lesion, mucus membranes moist Cardiovascular: S1S2 reg, no murmur Lungs: CTA bilateral, no rhonchi, no rales , no accessory muscle use Abdominal: soft, nontender to palpation, no guarding, no appreciable organomegaly Ext: no gross muscle atrophy, no edema, no contractures Neuro: CN II-XI grossly intact, no focal neuro deficits, moving all extremities Psych: Alert, not oriented, cannot follow commands A total of 33 minutes of time were spent preparing this complex discharge summary. Patient was discharged on 05/22/23 at 12:53. Patient Condition at Discharge: Stable Plan - Discharge Summary New Discharge Prescriptions: New HYDROcodone/APAP 5-325MG [Belvue 5-325] 1 each PO Q4HR PRN #10 tab PRN Reason: Moderate Pain (Scale 4 To 6) Sennosides-Docusate Sodium [Senokot-S] 2 each PO HS tab Aspirin 81 mg PO BID tab Tamsulosin [Flomax] 0.4 mg PO PC-BRKFST cap Continue Simvastatin [Zocor] 40 mg PO HS@2000 Memantine [Namenda] 10 mg PO BID@0700,1600 Cholestyramine (with Sugar) [Questran Packet] 4 gm PO DAILY@0700 Cyanocobalamin (Vitamin B-12) [Vitamin B-12] 1,000 mcg PO DAILY@0700 Acetaminophen [Tylenol 8 Hour] 650 mg PO Q6H Folic Acid 0.4 mg PO HS@2000 polyethylene glycoL 3350 [Miralax] 17 gm PO DAILY PRN PRN Reason: Constipation Divalproex Sprinkle [Depakote Sprinkle] 250 mg PO BID@0700,1600 Brexpiprazole [Rexulti] See Taper PO DAILY@0700 Discontinued Losartan [Cozaar] 25 mg PO HS@2000 traMADol HCL 50 mg PO Q6H PRN PRN Reason: RIGHT HIP PAIN LORazepam [Ativan] 0.5 mg PO Q6H PRN PRN Reason: Anxiety metFORMIN HCL [Glucophage] 1,000 mg PO BID@0700,1600 Acetaminophen Tab [Tylenol] 650 mg PO Q6H PRN PRN Reason: Pain Discharge Medication List Simvastatin [Zocor] 40 mg PO HS@2000 01/11/16 [History] Memantine [Namenda] 10 mg PO BID@0700,1600 09/10/21 [History] Cholestyramine (with Sugar) [Questran Packet] 4 gm PO DAILY@0700 03/12/22 [History] Cyanocobalamin (Vitamin B-12) [Vitamin B-12] 1,000 mcg PO DAILY@0700 03/12/22 [History] Folic Acid 0.4 mg PO HS@2000 03/12/22 [History] Acetaminophen [Tylenol 8 Hour] 650 mg PO Q6H 05/16/23 [History] Brexpiprazole [Rexulti] See Taper PO DAILY@0700 05/16/23 [History] Divalproex Sprinkle [Depakote Sprinkle] 250 mg PO BID@0700,1600 05/16/23 [History] polyethylene glycoL 3350 [Miralax] 17 gm PO DAILY PRN 05/16/23 [History] Aspirin 81 mg PO BID tab 05/22/23 [Rx] HYDROcodone/APAP 5-325MG [Belvue 5-325] 1 each PO Q4HR PRN #10 tab 05/22/23 [Rx] Sennosides-Docusate Sodium [Senokot-S] 2 each PO HS tab 05/22/23 [Rx] Tamsulosin [Flomax] 0.4 mg PO PC-BRKFST cap 05/22/23 [Rx] Follow up Appointment(s)/Referral(s): Negar Santos DO [Primary Care Provider] - 1-2 days Festus Ruiz MD [Medical Doctor] - 2 Weeks Patient Instructions/Handouts: Acute Kidney Injury (DC), Urinary Retention in Men (GEN), Hip Fracture (GEN) Activity/Diet/Wound Care/Special Instructions: Orthopedic instructions: Weight bear to tolerance on operative extremity with a walker. Keep operative dressings in place until follow-up. Repeat BMP in 3-4 days. Can restart losartan and metformin when renal function improves. voiding trial in 2-3 days. Discharge Disposition: TRANSFER TO SNF/ECF
[2023-05-22 14:01] VITALS: BP 117/63; PULSE 67; RESP 18; TEMP 98.3
== END 2023-05-22 16:09 | DRG 480 ==
LOC: EC 20:34 → 4SSUR 23:42 → 2SICU 05-18 14:02 → 5NMEDONC 05-21 21:17
PROVIDERS: ADMIT Student in an Organized Health Care Education/Training Program; ATTEND Student in an Organized Health Care Education/Training Program
PROC: 0HQ0XZZ Repair Scalp Skin, External Approach (ICD-10-PCS; 2023-05-16)
PROC: 3E043XZ Introduction of Vasopressor into Central Vein, Percutaneous Approach (ICD-10-PCS; 2023-05-18)
PROC: 0QS606Z Reposition Right Upper Femur with Intramedullary Internal Fixation Device, Open Approach (ICD-10-PCS; principal; 2023-05-18 07:39)
DX: S72.141A Displaced intertrochanteric fracture of right femur, initial encounter for closed fracture (principal); G93.41 Metabolic encephalopathy; D62 Acute posthemorrhagic anemia; F03.918 Unspecified dementia, unspecified severity, with other behavioral disturbance; N17.9 Acute kidney failure, unspecified; W18.30XA Fall on same level, unspecified, initial encounter; T83.021A Displacement of indwelling urethral catheter, initial encounter; T41.3X5A Adverse effect of local anesthetics, initial encounter; M43.12 Spondylolisthesis, cervical region; I95.2 Hypotension due to drugs; E78.5 Hyperlipidemia, unspecified; N40.1 Benign prostatic hyperplasia with lower urinary tract symptoms; R33.8 Other retention of urine; R42 Dizziness and giddiness; M50.30 Other cervical disc degeneration, unspecified cervical region; E11.9 Type 2 diabetes mellitus without complications; M54.30 Sciatica, unspecified side; S01.01XA Laceration without foreign body of scalp, initial encounter; Z96.642 Presence of left artificial hip joint; Z86.010 Personal history of colon polyps; Z79.82 Long term (current) use of aspirin; Z79.899 Other long term (current) drug therapy
CPT/HCPCS: 12002; 36415; 36600; 70450; 71045; 72125; 73501; 73502; 80048; 80053; 82805; 83036; 83735; 84100; 84484; 85025; 85610; 85730; 86850; 86900; 86901; 93005; 96374; 96376; 99285

== ENCOUNTER 2023-05-23 20:47 | Emergency (ER) | payer MEDICARE, OTHER ==
[2023-05-23 21:02] VITALS: RESP 18
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
[2023-05-24 00:31] VITALS: BP 125/70; PULSE 83; TEMP 97.9
== END 2023-05-24 00:31 | disposition home or self-care (01) ==
LOC: EC 20:47
DX: R33.9 Retention of urine, unspecified (principal); E11.9 Type 2 diabetes mellitus without complications; E78.5 Hyperlipidemia, unspecified; I10 Essential (primary) hypertension; Z79.899 Other long term (current) drug therapy
CPT/HCPCS: 51702; 99284